=== PATIENT | female | born 1945 | race Caucasian/White ===

== ENCOUNTER 2016-10-31 10:45 | Emergency (ER) | payer MEDICARE, MEDICAID ==
[2016-10-31 11:46] VITALS: BP 111/85
--- NOTE | 2016-10-31 16:15 | ED ---
Complex/Multi-Sys Presentation - HPI Summary HPI Summary: 71 F w/ PMH of HTN, CKD, and CAD presents as she wants to be placed in the care home. She states she has femoral bypass surgery on Sunday at [facility]. She said on Sunday they gave her the option to go home with her sister or to go to the care home. She states at the time she wanted to go home with her sister. She denies any fever, chest pain, or SOB. - History Of Current Complaint Chief Complaint: EDGeneral Time Seen by Provider: 10/31/16 15:54 - Allergies/Home Medications Allergies/Adverse Reactions: Allergies Allergy/AdvReac Type Severity Reaction Status Date / Time No Known Allergies Allergy Verified 08/16/15 15:32 PMH/Surg Hx/FS Hx/Imm Hx Endocrine/Hematology History: Reports: Hx Thyroid Disease - hypothryroid, Other Endocrine/Hematological Disorders - hyperparathyroidism Denies: Hx Diabetes, Hx Systemic Lupus Erythematosus Cardiovascular History: Reports: Hx Angina, Hx Coronary Artery Disease, Hx Hypercholesterolemia, Hx Hypertension, Hx Myocardial Infarction Denies: Hx Congestive Heart Failure, Hx Pacemaker/ICD, Hx Valvular Heart Disease Respiratory History: Reports: Hx Chronic Obstructive Pulmonary Disease (COPD) Denies: Hx Asthma GI History: Reports: Hx Ulcer, Other GI Disorders - ulcers History: Reports: Hx Chronic Renal Failure Denies: Other Problems/Disorders - "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" Musculoskeletal History: Reports: Hx Back Problems, Hx Fibromyalgia, Hx Osteoporosis - L hip, Other Musculoskeletal History - herniated discs x2, carpal tunnel Denies: Hx Rheumatoid Arthritis Sensory History: Reports: Hx Cataracts - R eye, Hx Contacts or Glasses, Hx Hearing Problem - R ear Denies: Hx Hearing Aid Opthamlomology History: Reports: Hx Cataracts - R eye, Hx Contacts or Glasses Neurological History: Reports: Hx Headaches, Other Neuro Impairments/Disorders - intermittent R leg numbness, migraines Psychiatric History: Reports: Hx Anxiety, Hx Depression Denies: Hx Panic Disorder - Surgical History Surgery Procedure, Year, and Place: ILIOFEMERAL BIPASS RT SIDE, GB, hysterectomy Infectious Disease History: No Infectious Disease History: Denies: Traveled Outside the [place] in Last 30 Days - Family History Known Family History: Positive: Cardiac Disease - Social History Alcohol Use: None Substance Use Type: Reports: None Substance Use Comment - Amount & Last Used: OXYCODONE Smoking Status (MU): Heavy Every Day Tobacco Smoker Type: Cigarettes Amount Used/How Often: 10-15/day Length of Time of Smoking/Using Tobacco: 56 years Review of Systems Negative: Fever Negative: Chest Pain Negative: Shortness Of Breath Positive: Other - abdominal pain around incision All Other Systems Reviewed And Are Negative: Yes Physical Exam Triage Information Reviewed: Yes Vital Signs On Initial Exam: Initial Vitals Temp Pulse Resp BP Pulse Ox 97.8 F 64 16 111/85 97 10/31/16 11:41 10/31/16 11:41 10/31/16 11:41 10/31/16 11:41 10/31/16 11:41 Vital Signs Reviewed: Yes Appearance: Positive: Well-Appearing Skin: Positive: Warm, Dry Head/Face: Positive: Normal Head/Face Inspection Eyes: Positive: Normal, Conjunctiva Clear ENT: Positive: Normal ENT inspection, Pharynx normal, TMs normal Respiratory/Lung Sounds: Positive: Clear to Auscultation, Breath Sounds Present Cardiovascular: Positive: Normal, RRR Abdomen Description: Positive: Soft, Other: - incision in LLQ CTI with mild tenderness around it Bowel Sounds: Positive: Present Diagnostics - Vital Signs Vital Signs Temp Pulse Resp BP Pulse Ox 10/31/16 13:24 67 99 10/31/16 11:41 97.8 F 64 16 111/85 97 - Laboratory Result Diagrams: 10/31/16 17:30 10/31/16 17:30 Lab Statement: Any lab studies that have been ordered have been reviewed, and results considered in the medical decision making process. Complex Multi-Symp Course/Dx Course Of Treatment: 71F presents with wanting to be admitted to a care home , normal PE has mild tenderness around CTI incision but pain is well controlled with current medicaiton and no signs of infection, explained that will have to be admitted for process to begin, got some basic labs and were normal, talked to social work and said will have to admit as social admit which would potential cost patient money, explained this to patient and patient states would like to go home to sisters, explained that can follow up with primary and they can start process, states that sister is not feeling great but will be able to take care of her, patient agrees with plan - Diagnoses Differential Diagnoses/HQI/PQRI: Sepsis, Urinary Tract Infection, Other - cellulitis Provider Diagnoses: Encounter for medical screening examination, Encounter for postoperative wound check Discharge - Discharge Plan Condition: Good Disposition: HOME Referrals: Camila Rodriguez MD [Primary Care Provider] - Additional Instructions: Follow up with primary to begin process of placement in care home. Return to ED if develop any new or worsening symptoms
[2016-10-31 17:51] LABS: Hematocrit 30 % (35-47); Mean Corpuscular HGB Conc 33 g/dl (31-36); Mean Corpuscular Hemoglobin 31 pg (27-31); Mean Corpuscular Volume 94 fL (80-97); Mean Platelet Volume 9 um3 (7.4-10.4); Red Cell Distribution Width 17 % (10.5-15); White Blood Count 9.5 10^3/ul (3.5-10.8)
[2016-10-31 18:07] LABS: Albumin 2.9 g/dL (3.2-5.2); BUN/Creatinine Ratio 13.9 (8-20); Calcium 9.5 mg/dL (8.6-10.3); EGFR African American 56.2 (>60); EGFR Non-African American 43.7 (>60); Globulin 2.4 g/dL (2-4); Potassium 4.2 mmol/L (3.5-5.0); Total Bilirubin 0.5 mg/dL (0.2-1.0); Total Protein 5.3 g/dL (6.4-8.9)
== END 2016-10-31 20:08 | disposition home or self-care (01) ==
LOC: ED 10:45
DX: Z02.2 Encounter for examination for admission to residential institution (principal); I12.9 Hypertensive chronic kidney disease with stage 1 through stage 4 chronic kidney disease, or unspecified chronic kidney disease; N18.9 Chronic kidney disease, unspecified; I25.10 Atherosclerotic heart disease of native coronary artery without angina pectoris; E03.9 Hypothyroidism, unspecified; E78.00 Pure hypercholesterolemia, unspecified; I25.2 Old myocardial infarction; I50.9 Heart failure, unspecified; F17.210 Nicotine dependence, cigarettes, uncomplicated; F41.9 Anxiety disorder, unspecified; F32.9 Major depressive disorder, single episode, unspecified
CPT/HCPCS: 36415; 80053; 83605; 84484; 85025; 99282

== ENCOUNTER 2017-05-25 19:00 | Inpatient (IN) | payer MEDICARE, MEDICAID ==
[2017-05-25 20:11] LABS: Hematocrit 40 % (35-47); Hemoglobin 13.4 g/dl (12.0-16.0); Mean Corpuscular HGB Conc 33 g/dl (31-36); Mean Corpuscular Hemoglobin 34 pg (27-31); Mean Corpuscular Volume 104 fL (80-97); Mean Platelet Volume 9 um3 (7.4-10.4); Red Blood Count 3.89 10^6/ul (4.0-5.4); Red Cell Distribution Width 14 % (10.5-15)
[2017-05-25 20:27] LABS: ALT 8 U/L (7-52); AST 14 U/L (13-39); Albumin 3.6 g/dL (3.2-5.2); Alkaline Phosphatase 107 U/L (34-104); Anion Gap 3 mmol/L (2-11); BUN/Creatinine Ratio 13.5 (8-20); Blood Urea Nitrogen 21 mg/dL (6-24); CO2 Carbon Dioxide 24 mmol/L (22-32); Calcium 9.4 mg/dL (8.6-10.3); Chloride 110 mmol/L (101-111); EGFR African American 42.2 (>60); EGFR Non-African American 32.8 (>60); Globulin 2.6 g/dL (2-4); Glucose 96 mg/dL (70-100); Potassium 4.2 mmol/L (3.5-5.0); Sodium 137 mmol/L (133-145); Total Protein 6.2 g/dL (6.4-8.9)
[2017-05-25 20:45] LABS: Acetaminophen < 15 mcg/mL; Alcohol < 10 mg/dL (<10); Salicylate < 2.50 mg/dL (<30)
[2017-05-26] MEDS ORDERED: Acetaminophen TAB* 325 MG PO PRN (00:24)
[2017-05-26] MEDS ORDERED: Al Hydrox/Mg Hydrox/Simet LIQ* 30 ML UDC PO PRN (00:24)
[2017-05-26] MEDS ORDERED: Ibuprofen TAB* 400 MG PO PRN (00:24)
[2017-05-26] MEDS ORDERED: Senna TAB PO PRN (00:25)
[2017-05-26] MEDS ORDERED: Levalbuterol 0.63MG/3ML NEB* UNIT OF USE INH PRN (01:02)
[2017-05-26] MEDS: amLODIPine TAB* 5 MG PO SCH (08:02)
[2017-05-26] MEDS: Atenolol TAB* 25 MG PO SCH (08:06)
[2017-05-26] MEDS: CMC: Pantoprazole TAB (NF) 40 MG TAB PO SCH (08:06)
[2017-05-26] MEDS: Clopidogrel TAB* 75 MG PO SCH (08:06)
[2017-05-26] MEDS: Vitamin THERAPEUTIC TAB PO SCH (08:06)
[2017-05-26] MEDS: Aspirin EC Low Dose* 81 MG TAB.EC PO SCH (08:06)
[2017-05-26] MEDS: Atorvastatin* 10 MG TAB PO SCH (08:06)
[2017-05-26] MEDS: Levothyroxine TAB* 125 MCG TAB PO SCH (08:06)
[2017-05-26] MEDS: Lisinopril TAB* 5 MG PO SCH (08:06)
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
[2017-05-26] MEDS: Amitriptyline TAB* 50 MG PO SCH ×2 (10:23→20:11)
[2017-05-26] MEDS: Nicotine PATCH 21 MG/24 HR* PATCH TRANSDERM PRN (11:14)
[2017-05-26] MEDS ORDERED: ALPRAZolam TAB* 0.5 MG PO PRN (14:30)
[2017-05-26] MEDS: oxyCODONE TAB* 5 MG TAB PO PRN ×2 (16:01→20:11)
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
[2017-05-26] MEDS: Nicotine Patch Removal NOTE PATCH OFF SCH (20:37)
[2017-05-27] MEDS: oxyCODONE TAB* 5 MG TAB PO PRN ×4 (07:42→20:10)
[2017-05-27] MEDS: amLODIPine TAB* 5 MG PO SCH (09:12)
[2017-05-27] MEDS: Lisinopril TAB* 5 MG PO SCH (09:13)
[2017-05-27] MEDS: Clopidogrel TAB* 75 MG PO SCH (09:13)
[2017-05-27] MEDS: Atenolol TAB* 25 MG PO SCH (09:19)
[2017-05-27] MEDS: Atorvastatin* 10 MG TAB PO SCH (09:19)
[2017-05-27] MEDS: Levothyroxine TAB* 125 MCG TAB PO SCH (09:19)
[2017-05-27] MEDS: Aspirin EC Low Dose* 81 MG TAB.EC PO SCH (09:20)
[2017-05-27] MEDS: Vitamin THERAPEUTIC TAB PO SCH (09:20)
[2017-05-27] MEDS: CMC: Pantoprazole TAB (NF) 40 MG TAB PO SCH (09:21)
[2017-05-27] MEDS: Nicotine PATCH 21 MG/24 HR* PATCH TRANSDERM PRN (11:33)
[2017-05-27] MEDS: Amitriptyline TAB* 50 MG PO SCH (20:11)
--- NOTE | 2017-05-27 21:10 | PN ---
Subjective - Subjective Service Type: 34832 Hosp care 15 min low complexity Subjective: Patient anxious in affect on interview. She reports no issues on the unit. Patient reports sleep and appetite have been fair. She denies SI/HI and AH/VH. Patient informed her attending psychiatrist will see her in the morning regarding mx/meds/discharge. Objective - Appearance Appearance: Thin Framed Dysmorphic Features: No Hygiene: Normal Grooming: Fairly Well Kept - Behavior Psychomotor Activities: Normal Exhibits Abnormal Movement: No - Attitude and Relatedness Attitude and Relatedness: Cooperative Eye Contact: Fair - Speech Quality: Unpressured Latencies: Normal Quantity: Appropriate - Mood Patient's Decription of Mood: "Anxious" - Affect Observed Affect: Tense Affect Consistent with: Dysphoria - Thought Process Patient's Thought Process: Coherent Thought Content: No Passive Wish, No Suicidal Planning, No Homicidal Ideation, No Paranoid Ideation - Sensorium Experiencing Hallucinations: No, Sensorium is Clear Type of Hallucinations: Visual: No, Auditory: No, Command: No - Level of Consciousness Level of Consciousness: Alert Orientation: Yes Intact, Yes Orientated to Time, Yes Orientated to Place, Yes Orientated to Person - Impulse Control Impulse Control: Intact - Insight and Judgement Insight and Judgement: Fair - Group Participation Particating in Group Activities: Yes - Medication Management Medication Management Adherence: Yes Assessment - Assessment Merits Inpatient Hospitalization: For Immediate Safety, For Stabilization Inpatient DSM-IV Dx: 1. MDD, R,S w/o PFs. 2. Unspecified Anxiety d/o Plan - Plan Treatment Plan: Name: CONCETTA POLANCO Birthdate: 1945 [id number] 1. Continue current med regimen as ordered. 2. Patient informed her attending psychiatrist will see her in the am. Medications: Current Medications Acetaminophen (Tylenol Tab*) 650 mg PO Q4H PRN PRN Reason: PAIN or TEMP > 101 F Al Hydrox/Mg Hydrox/Simethicone (Maalox Plus*) 30 ml PO Q4H PRN PRN Reason: INDIGESTION Alprazolam (Xanax Tab*) 0.5 mg PO BID PRN PRN Reason: ANXIETY Amitriptyline HCl (Elavil Tab*) 50 mg PO BEDTIME [facility] Last Admin: 05/27/17 20:11 Dose: 50 mg Amlodipine Besylate (Norvasc Tab*) 2.5 mg PO DAILY [facility] Last Admin: 05/27/17 09:12 Dose: 2.5 mg Aspirin (Aspirin Ec Low Dose*) 81 mg PO DAILY [facility] Last Admin: 05/27/17 09:20 Dose: 81 mg Atenolol (Tenormin Tab*) 25 mg PO DAILY [facility] Last Admin: 05/27/17 09:19 Dose: 25 mg Atorvastatin Calcium (Lipitor*) 10 mg PO DAILY [facility] Last Admin: 05/27/17 09:19 Dose: 10 mg Clopidogrel Bisulfate (Plavix Tab*) 75 mg PO DAILY [facility] Last Admin: 05/27/17 09:13 Dose: 75 mg Ibuprofen (Motrin Tab*) 400 mg PO Q6H PRN PRN Reason: PAIN Last Admin: 05/26/17 11:12 Dose: 400 mg Levalbuterol HCl (Xopenex 0.63mg/3ml Neb*) 0.63 mg INH TID PRN PRN Reason: SHORTNESS OF BREATH Levothyroxine Sodium (Synthroid Tab*) 125 mcg PO DAILY@0600 [facility] Last Admin: 05/27/17 09:19 Dose: 125 mcg Lisinopril (Prinivil Tab*) 5 mg PO DAILY [facility] Last Admin: 05/27/17 09:13 Dose: 5 mg Multivitamins (Theragran Tab*) 1 tab PO DAILY [facility] Last Admin: 05/27/17 09:20 Dose: 1 tab Nicotine (Nicotine Patch 21 Mg/24 Hr*) 1 patch TRANSDERM DAILY PRN PRN Reason: CRAVINGS Last Admin: 05/27/17 11:33 Dose: 1 patch Nicotine (Nicotine Inhaler*) 10 mg INH Q2H PRN PRN Reason: NICOTINE CRAVINGS Oxycodone HCl (Roxycodone Tab*) 5 mg PO Q4HR PRN PRN Reason: PAIN Last Admin: 05/27/17 20:10 Dose: 5 mg Pantoprazole Sodium (Protonix Tab (Nf)) 40 mg PO DAILY [facility] Last Admin: 05/27/17 09:21 Dose: 40 mg Pharmacy Profile Note (Nicotine Patch Removal Note*) 1 note PATCH OFF 2100 [facility] Last Admin: 05/26/17 20:37 Dose: 1 note Senna (Senokot Tab*) 1 tab PO BID PRN PRN Reason: CONSTIPATION - Discharge Plan Discharge Plan: Outpatient Follow Up
[2017-05-28] MEDS: oxyCODONE TAB* 5 MG TAB PO PRN ×5 (00:21→20:14)
[2017-05-28] MEDS: Levothyroxine TAB* 125 MCG TAB PO SCH (07:32)
[2017-05-28] MEDS ORDERED: Mouth Piece, Nicotine* 1 EACH CARTRIDGE ONE (07:32)
[2017-05-28] MEDS: Nicotine Inhaler* 10 MG AMP INH PRN ×2 (07:33→15:56)
[2017-05-28 08:00] VITALS: BP 152/74
[2017-05-28] MEDS: Nicotine Patch Removal NOTE PATCH OFF SCH ×2 (08:56→20:14)
[2017-05-28] MEDS: Nicotine PATCH 21 MG/24 HR* PATCH TRANSDERM PRN (08:59)
[2017-05-28] MEDS: Aspirin EC Low Dose* 81 MG TAB.EC PO SCH (09:03)
[2017-05-28] MEDS: Vitamin THERAPEUTIC TAB PO SCH (09:03)
[2017-05-28] MEDS: Lisinopril TAB* 5 MG PO SCH (09:03)
[2017-05-28] MEDS: Atenolol TAB* 25 MG PO SCH (09:03)
[2017-05-28] MEDS: Atorvastatin* 10 MG TAB PO SCH (09:03)
[2017-05-28] MEDS: amLODIPine TAB* 5 MG PO SCH (09:03)
[2017-05-28] MEDS: Clopidogrel TAB* 75 MG PO SCH (09:03)
[2017-05-28] MEDS: CMC: Pantoprazole TAB (NF) 40 MG TAB PO SCH (10:05)
[2017-05-28] MEDS ORDERED: Venlafaxine EXT RELEASE CAP* 75 MG PO SCH ×2 (12:00→15:09)
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
[2017-05-28] MEDS ORDERED: Mirtazapine TAB* 15 MG PO SCH (21:00)
[2017-05-28] MEDS ORDERED: Amitriptyline TAB* 25 MG PO SCH (21:00)
[2017-05-29] MEDS: amLODIPine TAB* 5 MG PO SCH (08:29)
[2017-05-29] MEDS: Levothyroxine TAB* 125 MCG TAB PO SCH (08:29)
[2017-05-29] MEDS: Aspirin EC Low Dose* 81 MG TAB.EC PO SCH (08:30)
[2017-05-29] MEDS: Atorvastatin* 10 MG TAB PO SCH (08:30)
[2017-05-29] MEDS: Atenolol TAB* 25 MG PO SCH (08:30)
[2017-05-29] MEDS: Clopidogrel TAB* 75 MG PO SCH (08:30)
[2017-05-29] MEDS: Lisinopril TAB* 5 MG PO SCH (08:30)
[2017-05-29] MEDS: Vitamin THERAPEUTIC TAB PO SCH (08:31)
[2017-05-29] MEDS: CMC: Pantoprazole TAB (NF) 40 MG TAB PO SCH (08:31)
[2017-05-29] MEDS: oxyCODONE TAB* 5 MG TAB PO PRN ×2 (08:32→12:34)
[2017-05-29] MEDS: Nicotine Inhaler* 10 MG AMP INH PRN (08:48)
[2017-05-29] MEDS: Nicotine PATCH 21 MG/24 HR* PATCH TRANSDERM PRN (08:49)
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
== END 2017-05-29 14:00 | disposition home health service (06) | DRG 885 ==
LOC: ED 19:00 → BSU 05-26 00:29
PROVIDERS: ADMIT Psychiatry & Neurology Psychiatry; ATTEND Psychiatry & Neurology Psychiatry
DX: F33.1 Major depressive disorder, recurrent, moderate (principal); J44.9 Chronic obstructive pulmonary disease, unspecified; G62.9 Polyneuropathy, unspecified; M41.9 Scoliosis, unspecified; Z91.14 Patient's other noncompliance with medication regimen; Z68.1 Body mass index [BMI] 19.9 or less, adult; I12.9 Hypertensive chronic kidney disease with stage 1 through stage 4 chronic kidney disease, or unspecified chronic kidney disease; E03.9 Hypothyroidism, unspecified; E78.00 Pure hypercholesterolemia, unspecified; N18.9 Chronic kidney disease, unspecified; I25.10 Atherosclerotic heart disease of native coronary artery without angina pectoris; F41.9 Anxiety disorder, unspecified; F11.90 Opioid use, unspecified, uncomplicated; R40.2412 Glasgow coma scale score 13-15, at arrival to emergency department; F10.21 Alcohol dependence, in remission; K86.9 Disease of pancreas, unspecified; R63.4 Abnormal weight loss; M79.7 Fibromyalgia; M19.90 Unspecified osteoarthritis, unspecified site; F17.210 Nicotine dependence, cigarettes, uncomplicated; M81.0 Age-related osteoporosis without current pathological fracture; G43.909 Migraine, unspecified, not intractable, without status migrainosus; H91.92 Unspecified hearing loss, left ear; R19.7 Diarrhea, unspecified; H26.9 Unspecified cataract; Z82.49 Family history of ischemic heart disease and other diseases of the circulatory system; Z90.49 Acquired absence of other specified parts of digestive tract; I25.2 Old myocardial infarction; Z90.710 Acquired absence of both cervix and uterus; Z91.5 Personal history of self-harm; Z81.1 Family history of alcohol abuse and dependence; Z81.8 Family history of other mental and behavioral disorders
CPT/HCPCS: 36415; 80053; 80320; 80329; 84443; 85025; 99222; 99231; 99232; 99238; A9270-GY; G0480; J7615

== ENCOUNTER → 2017-09-18 08:36 | Emergency (ER) | payer MEDICARE, MEDICAID ==
[~2017-09-18 08:36] MED LIST: Acetaminophen TAB* 325 MG PO ONE; Morphine INJ* 4 MG/ML 1 ML CARPUJECT IV ONE; Ondansetron INJ* 2 MG/ML VIAL IV ONE; hydrALAZINE IV* 20 MG/ML VIAL IV SLOW PU ONE; oxyCODONE TAB* 5 MG TAB PO ONE
--- NOTE | 2017-09-18 09:18 | ED ---
Complex/Multi-Sys Presentation - HPI Summary HPI Summary: Pt here w/ fall yesterday around 15:00. Was ambulating with her cane to go to the [facility] when she believes her cane got caught in a sidewalk crack and she fell, landing on Rt UE and Lt side of face. Rt wrist is bruised, swollen and painful to move. Rt elbow and shoulder are also painful to touch and sore with movement. Denies numbness, tingling, weakness but has pain in wrist w/ moving her fingers here. Pain radiates from wrist up to shoulder. Tried ice and took an oxycodone 5mg which she has for her chronic lumbar pain. She denies LOC but admits she was alone and no one saw her fall. Admits she was down for a few minutes before she could get up. Struck her Lt side of her face which is bruised and painful. Has some photophobia since injury and neck pain. Denies franca MA, visual change, vomiting, balance issues, syncope, chest pain, SOB, ab pain, LE pain. Does admit her appetite has been poor since accident and has not eaten anything since fall. She has osteoporosis, HTN and PAD w/ bypass surgery in [place]. Had an ND in her late 30's. Takes lisinopril, atenolol and plavix as well as Vit D for osteoporosis as she reports her "kidneys do not work well". Also reports she has stents in her aorta and iliac vessels for reasons she does not know. - History Of Current Complaint Chief Complaint: EDExtremityUpper Time Seen by Provider: 09/18/17 08:58 Hx Obtained From: Patient - Allergies/Home Medications Allergies/Adverse Reactions: Allergies Allergy/AdvReac Type Severity Reaction Status Date / Time No Known Allergies Allergy Verified 09/18/17 08:39 PMH/Surg Hx/FS Hx/Imm Hx Previously Healthy: Yes Endocrine/Hematology History: Reports: Hx Anticoagulant Therapy - plavix, Hx Thyroid Disease - hypothryroid, Other Endocrine/Hematological Disorders - pancreatitis Denies: Hx Diabetes, Hx Systemic Lupus Erythematosus Cardiovascular History: Reports: Hx Angina, Hx Coronary Artery Disease, Hx Hypercholesterolemia, Hx Hypertension, Hx Myocardial Infarction - at age 41 y.o. 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 Denies: Other Problems/Disorders - "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" Musculoskeletal History: Reports: Hx Arthritis, Hx Back Problems, Hx Fibromyalgia, Hx Osteoporosis, Hx Scoliosis, Other Musculoskeletal History - herniated discs x2, carpal tunnel Denies: Hx Rheumatoid Arthritis Sensory History: Reports: Hx Cataracts - R eye, Hx Hearing Problem - Pt states she cannot hear with her left ear Denies: Hx Contacts or Glasses, Hx Hearing Aid Opthamlomology History: Reports: Hx Cataracts - R eye Denies: Hx Contacts or Glasses Neurological History: Reports: Hx Headaches, Other Neuro Impairments/Disorders - intermittent R leg numbness, migraines Psychiatric History: Reports: Hx Anxiety, Hx Depression, Hx of Violent Episodes Against Others Denies: Hx Eating Disorder, Hx Panic Disorder - Surgical History Surgery Procedure, Year, and Place: ILIOFEMORAL BYPASS RT SIDE,. CHOLECYSTECTOMY,. hysterectomy,. AORTIC STENTS,. BI-LAT FEMORAL GRAFTS,. CARPAL TUNNEL RT WRIST. CYST REMOVED FROM BACK. ECTOPIC . TONSILECTOMY Infectious Disease History: No Infectious Disease History: Denies: Traveled Outside the [place] in Last 30 Days - Family History Known Family History: Positive: Cardiac Disease - Social History Occupation: Disabled Lives: Alone - [employer] Alcohol Use: None Hx Substance Use: No Substance Use Type: Reports: None Substance Use Comment - Amount & Last Used: OXYCODONE Hx Tobacco Use: Yes Smoking Status (MU): Current Every Day Smoker Type: Cigarettes Amount Used/How Often: 10-15/day Length of Time of Smoking/Using Tobacco: 56 years Have You Smoked in the Last Year: Yes Review of Systems Positive: Fatigue - tired from not sleeping well last night d/t pain in wrist Positive: Photophobia. Negative: Blurred Vision, Diplopia, Drainage, Erythema Negative: Epistaxis, Dental Pain, Sore Throat, Ear Ache, Nasal Discharge Negative: Chest Pain Negative: Shortness Of Breath Positive: Other - decreased appetite. Negative: Abdominal Pain, Vomiting, Diarrhea, Nausea Positive: no symptoms reported Positive: Arthralgia, Myalgia, Decreased ROM, Edema Positive: Bruising Negative: Headache - but has facial pain, Weakness, Paresthesia, Numbness, Syncope, Slurred Speech Psychological: Normal All Other Systems Reviewed And Are Negative: Yes Physical Exam Triage Information Reviewed: Yes Vital Signs On Initial Exam: Initial Vitals Temp Pulse Resp BP Pulse Ox 98.6 F 63 16 177/99 96 09/18/17 08:39 09/18/17 08:39 09/18/17 08:39 09/18/17 08:39 09/18/17 08:39 Vital Signs Reviewed: Yes Appearance: Positive: Pain Distress - mild at rest, gaurding Rt wrist movements , Thin - appears tired and speech is deliberate with subtle tremor (pt's chart indicate she takes/took lithium); Skin: Positive: Warm, Dry - Rt wrist is feverish to touch and edematous w/ bruising - no skin breakdown observed here; Lt periorbital region w/ edema, fresh ecchymosis and scabbed abrasion - TTP Head/Face: Positive: Other - as above; no step off, no battlesign Eyes: Positive: EOMI, IRMA - mild photophobia, Conjunctiva Clear. Negative: Conjunctiva Inflammed, Discharge ENT: Positive: Hearing grossly normal, Pharynx normal - oral mucosa dry, TMs normal - no hemotympanum. Negative: Nasal congestion, Nasal drainage Neck: Positive: Supple, Tenderness @ - paracervical and spinous pp TTP Respiratory/Lung Sounds: Positive: Clear to Auscultation, Breath Sounds Present Cardiovascular: Positive: Normal, RRR, Other - +1-2 pulse palated in Lt radial wrist - difficult to asses Rt radial pulse - cap refill < 2 secs distally and phalanges are warm w/ pink color equal to Lt hand. Negative: Leg Edema Left, Leg Edema Right - NTTP B/L Abdomen Description: Positive: Nontender, No Organomegaly, Soft Bowel Sounds: Positive: Present Musculoskeletal: Positive: Strength/ROM Intact - shoulders, elbows B/L, Limited @ - Rt phalanges and wrist w/ limited ROM d/t pain, swelling, Pain @ - Rt shoulder w/ TTP and Rt elbow w/ TTP - humerus and forearm NTTP; Rt wrist is TTP ; phalanges/hand are NTTP Neurological: Positive: Sensory/Motor Intact, Alert, Oriented to Person Place, Time, CN Intact II-III, Facial Symmetry, Speech Normal - not slurred but subtly deliberate Psychiatric: Positive: Normal - pleasant, calm, cooperative Diagnostics - Vital Signs Vital Signs Temp Pulse Resp BP Pulse Ox 09/18/17 08:39 98.6 F 63 16 177/99 96 - Laboratory Result Diagrams: 09/18/17 14:15 Diagnostic Studies Comment: Rt wrist bone avulsion of the .... - otherwise, no acute pathology per radioogy report or per my personal review of XR. Lab Statement: Any lab studies that have been ordered have been reviewed, and results considered in the medical decision making process. Re-Evaluation - Re-Evaluation First Eval Change: Improved - pt reports taking oxycodone at 5am this morning which was helping her wrist pain. At 10am she reported pain was coming back and requesting pain control. Another oxycodone 5 mg was administered PO and she reports good pain control with this. Complex Multi-Symp Course/Dx Course Of Treatment: Pt here w/ mulitple sx s/p fall yesterday. She tripped and fell, landing on sidewalk and catching herself with Lt side of face and Rt wrist. She has pain and swelling in wrist nad about face. She also reported photophobia, facial pain and neck pain. CT's were w/o acute findings and all XR w/o acute findings except Rt wrist w/ avulsion fx of ... She was splinted w/ normal N/V exam before and after. However, upon d/c vitals indicated asx hypertensive urgency. Pt reports " this happens at times - I just take a norvasc and it gets better". She was given 10mg hydralazine IV and had some reduction of systolic pressure in the first hour however she did report some dizziness. ECG w/o signs of end organ damage. Upon evaluation 2 hours after hydralazine, pt's pain is poorly controlled - 10/10 - and still asx but has elevated BP. She reports she's not been taking norvasc as she only takes it when he BP is high and it hasn't been since last seen by PCP 1-2 weeks ago. She admits she takes xanax for anxiety (0.25mg). Will try different pain control method to see if this reduces pain, BP and anxiety. S/p morphine IV and PO acetaminophen (plus low salt snacks), pt's BP stayed below 200 systolic and her pain improved - she is resting comfortably and ready to go home. Explained she needs to call her PCP today to schedule appt re: better BP control. Reviewed danger s/sx of when to return to ED. Notified pt's sister who also agrees to aid in compliance. - Diagnoses Provider Diagnoses: Closed fracture of right wrist, Hypertensive urgency Discharge - Discharge Plan Condition: Stable Disposition: HOME Patient Education Materials: Wrist Fracture in Adults (ED), Splint Care (ED), Hypertension (ED), Fall Prevention for Older Adults (ED) Referrals: Dallas Sanchez MD [Medical Doctor] - Camila Rodriguez MD [Primary Care Provider] - Additional Instructions: Rest, ice, elevate Keep splint in place until seen by orthopedic - call today to schedule an appointment You may continue to take your oxycodone which you have at home for pain *If you develop numbness, tingling, weakness, coolness of fingers, return to ED You also have a dangeroulsy elevated blood pressure which needs better management. This may be addressed by your PCP. Continue to take your current blood pressure medications as directed and call your PCP today to schedule appointment in next 1-2 days.
--- NOTE | 2017-09-18 09:50 | RAD ---
HISTORY: Fall, facial injury, photosensitivity COMPARISONS: August 19, 2016 TECHNIQUE: Multiple contiguous axial CT scans were obtained of the head without intravenous contrast. FINDINGS: HEMORRHAGE/INFARCT: There is no hemorrhage or acute infarct. MASSES/SHIFT: There is no mass or shift. EXTRA-AXIAL SPACES: There are no extra-axial fluid collections. SULCI AND VENTRICLES: The sulci and ventricles are normal in size and position for the patient's stated age. CEREBRUM: There are no focal parenchymal abnormalities. BRAINSTEM: There are no focal parenchymal abnormalities. CEREBELLUM: There are no focal parenchymal abnormalities. VESSELS: The vessels are grossly normal. PARANASAL SINUSES: The paranasal sinuses are clear. ORBITS: The orbits are unremarkable. BONES AND SOFT TISSUE: No bone or soft tissue abnormalities are noted. OTHER: None IMPRESSION: NO ACUTE INTRACRANIAL PATHOLOGY.
--- NOTE | 2017-09-18 09:53 | RAD ---
HISTORY: Fall, neck pain, osteoporosis COMPARISONS: None relevant TECHNIQUE: Multiple contiguous axial CT scans were obtained of the cervical spine without intravenous contrast, with coronal and sagittal multiplanar reformations. FINDINGS: BRAIN: The visualized brain is unremarkable CENTRAL CANAL: Evaluation of the central canal is limited on CT technique; however, there is no obvious canalicular mass or epidural hemorrhage. ALIGNMENT: There is straightening of the cervical lordosis. VERTEBRAL BODIES: There is multilevel bridging anterolateral marginal osteophyte formation. There is diffuse osteopenia. There is a persistent subdental synchondrosis. There is no displaced fracture. JOINTS: There is uncovertebral and facet osteoarthritis. MUSCULATURE: Unremarkable INTERVERTEBRAL DISCS: There is diffuse loss of intervertebral disc height. AXIAL IMAGES: C2-C3: There is no osseous neural foraminal narrowing or central canal stenosis. C3-C4: There are posterior bridging osteophytes. There is bilateral uncovertebral and facet hypertrophy. There is moderate bilateral neural foraminal narrowing. There is mild narrowing of the central canal. C4-C5: There is posterior osteophytic ridging. There is bilateral vertebral and facet hypertrophy. There is severe bilateral neural foraminal narrowing. There is no significant osseous central canal stenosis. C5-C6: There is bilateral uncovertebral hypertrophy. There is moderate left neural foraminal narrowing. There is no osseous central canal stenosis. C6-C7: There is no osseous neural foraminal narrowing or central canal stenosis. C7-T1: There is no osseous neural foraminal narrowing or central canal stenosis. SOFT TISSUES: The visualized soft tissues of the neck are unremarkable. The prevertebral fat stripe is preserved. OTHER: None. IMPRESSION: DEGENERATIVE DISC DISEASE AND OSTEOARTHRITIS DESCRIBED ABOVE. NO ACUTE OSSEOUS INJURY TO THE CERVICAL SPINE
--- NOTE | 2017-09-18 09:55 | RAD ---
HISTORY: Fall with facial injury and bruising COMPARISONS: None relevant TECHNIQUE: Multiple contiguous axial CT scans were obtained of the face without intravenous contrast, with coronal and sagittal multiplanar reformations. FINDINGS: BONES: There is no displaced fracture or dislocation. The orbital rim is intact. The zygomatic arch is intact. The pterygoid plates are intact. ORBITS: The globes are round. The optic nerves are symmetric. The extraocular musculature is normal. There is no post septal or intraconal inflammatory change. There is no retrobulbar hematoma. PARANASAL SINUSES: The paranasal sinuses are clear. The nasal septum is deviated to the right BRAIN AND SOFT TISSUE: A surgical clip is noted in the right infratemporal fossa. OTHER: None. IMPRESSION: NO FACIAL FRACTURE
--- NOTE | 2017-09-18 11:03 | RAD ---
HISTORY: Fall with right wrist swelling and pain and limited range of motion COMPARISONS: None VIEWS: 2, Frontal and lateral views of the right wrist FINDINGS: BONE DENSITY: There is diffuse osteopenia. BONES: There is a bone fragment along the dorsal aspect of the proximal carpal row, likely representing a triquetral avulsion fracture. JOINTS: There is osteoarthritis of the first CMC and MCP joints. ALIGNMENT: There is no dislocation. SOFT TISSUES: Unremarkable. OTHER FINDINGS: None. IMPRESSION: 1. SMALL BONE FRAGMENT ALONG THE DORSAL ASPECT OF THE PROXIMAL CARPAL ROW, LIKELY REPRESENTING AN AVULSION FRACTURE OF THE TRIQUETRUM. 2. OSTEOPENIA. 3. OSTEOARTHRITIS.
--- NOTE | 2017-09-18 11:03 | RAD ---
HISTORY: Fall, elbow pain, osteoporosis COMPARISONS: None VIEWS: 2, Frontal and lateral views of the right elbow FINDINGS: BONE DENSITY: There is diffuse osteopenia. BONES: There is no displaced fracture. JOINTS: There is no arthropathy. There is no posterior supracondylar fat pad to suggest a joint effusion. ALIGNMENT: There is no dislocation. SOFT TISSUES: Unremarkable. OTHER FINDINGS: None. IMPRESSION: NO ACUTE OSSEOUS INJURY. IF SYMPTOMS PERSIST, RECOMMEND REPEAT IMAGING.
--- NOTE | 2017-09-18 11:43 | RAD ---
INDICATION: Right shoulder pain COMPARISON: None TECHNIQUE: Routine frontal, Y and axial views were obtained. FINDINGS: The bony structures, joint spaces, and soft tissues are normal for age. IMPRESSION: NEGATIVE EXAMINATION
[2017-09-18 14:38] LABS: BUN/Creatinine Ratio 10.8 (8-20); Blood Urea Nitrogen 16 mg/dL (6-24); CO2 Carbon Dioxide 21 mmol/L (22-32); Calcium 10.5 mg/dL (8.6-10.3); Chloride 104 mmol/L (101-111); EGFR African American 44.8 (>60); EGFR Non-African American 34.9 (>60); Glucose 111 mg/dL (70-100); Sodium 134 mmol/L (133-145)
[2017-09-18 14:53] LABS: Anion Gap 9 mmol/L (2-11)
[2017-09-18 16:12] VITALS: BP 204/113
== END | disposition home or self-care (01) ==
LOC: ED 08:36
DX: S62.101A Fracture of unspecified carpal bone, right wrist, initial encounter for closed fracture (principal); I25.2 Old myocardial infarction; M54.5 Low back pain; G89.29 Other chronic pain; F17.210 Nicotine dependence, cigarettes, uncomplicated; I16.0 Hypertensive urgency; W18.09XA Striking against other object with subsequent fall, initial encounter; Y93.9 Activity, unspecified; Y92.480 Sidewalk as the place of occurrence of the external cause; F41.9 Anxiety disorder, unspecified; Z79.02 Long term (current) use of antithrombotics/antiplatelets; E03.9 Hypothyroidism, unspecified
CPT/HCPCS: 29125; 36415; 70450; 70486; 72125; 80048; 93005; 99285; A9270-GY; J0360; J2270; J2405

== ENCOUNTER 2019-01-14 15:44 | Emergency (ER) | payer MEDICARE, MEDICAID ==
[2019-01-14 15:57] VITALS: BP 144/80
--- NOTE | 2019-01-14 16:08 | ED ---
Lower Extremity - HPI Summary HPI Summary: This pt is a 74 y/o female presenting to [facility] c/o right leg numbness and pain for the past 6 days, worsening now. Pt reports she fell 1 week ago and since then has had right leg pain. She states right leg pain has been increasing. Denies fever or chills. Pt has hx of bilateral femoral artery bypass in [address] Ray Ratliff (vascular surgeon) at [facility] (address : [address] [place] [address]). Pt states she has not taken Plavix in 2 weeks because she couldn't afford them. - History of Current Complaint Chief Complaint: EDExtremityLower Stated Complaint: FALL WEEK AGO, RIGHT LEG PAIN, NO FEELING PER PT Hx Obtained From: Patient Mechanism Of Injury: Fall From A Standing Position Pain Intensity: 9 Pain Scale Used: 0-10 Numeric Timing: Lasting Days Location: Is Discrete @ - right foot Associated Signs And Symptoms: Positive: Other - POS: numbness and pain in right leg. Negative: Fever, Abdominal Pain, Knee Pain Aggravating Factor(s): Nothing Alleviating Factor(s): Nothing Related History: Other - bilateral femoral artery bypass in 2015 - Allergies/Home Medications Allergies/Adverse Reactions: Allergies Allergy/AdvReac Type Severity Reaction Status Date / Time No Known Allergies Allergy Verified 09/18/17 08:39 PMH/Surg Hx/FS Hx/Imm Hx Endocrine/Hematology History: Reports: Hx Anticoagulant Therapy - plavix, Hx Thyroid Disease - hypothryroid, Other Endocrine/Hematological Disorders - pancreatitis Denies: Hx Diabetes, Hx Systemic Lupus Erythematosus Cardiovascular History: Reports: Hx Angina, Hx Coronary Artery Disease, Hx Hypercholesterolemia, Hx Hypertension, Hx Myocardial Infarction - at age 41 y.o. 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 Denies: Other Problems/Disorders - "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" Musculoskeletal History: Reports: Hx Arthritis, Hx Back Problems, Hx Fibromyalgia, Hx Osteoporosis, Hx Scoliosis, Other Musculoskeletal History - herniated discs x2, carpal tunnel Denies: Hx Rheumatoid Arthritis Sensory History: Reports: Hx Cataracts - R eye, Hx Hearing Problem - Pt states she cannot hear with her left ear Denies: Hx Contacts or Glasses, Hx Hearing Aid Opthamlomology History: Reports: Hx Cataracts - R eye Denies: Hx Contacts or Glasses Neurological History: Reports: Hx Headaches, Other Neuro Impairments/Disorders - intermittent R leg numbness, migraines Psychiatric History: Reports: Hx Anxiety, Hx Depression, Hx of Violent Episodes Against Others Denies: Hx Eating Disorder, Hx Panic Disorder - Surgical History Surgery Procedure, Year, and Place: ILIOFEMORAL BYPASS RT SIDE,. CHOLECYSTECTOMY,. hysterectomy,. AORTIC STENTS,. BI-LAT FEMORAL GRAFTS,. CARPAL TUNNEL RT WRIST. CYST REMOVED FROM BACK. ECTOPIC . TONSILECTOMY Infectious Disease History: No Infectious Disease History: Denies: Traveled Outside the [place] in Last 30 Days - Family History Known Family History: Positive: Cardiac Disease - Social History Alcohol Use: None Hx Substance Use: No Substance Use Type: Reports: None Substance Use Comment - Amount & Last Used: OXYCODONE Hx Tobacco Use: Yes Smoking Status (MU): Current Every Day Smoker Type: Cigarettes Amount Used/How Often: 10-15/day Length of Time of Smoking/Using Tobacco: 56 years Have You Smoked in the Last Year: Yes Review of Systems Negative: Fever, Chills Positive: Cough Musculoskeletal: Other - POS: right leg pain Positive: Numbness - right leg All Other Systems Reviewed And Are Negative: Yes Physical Exam - Summary Physical Exam Summary: VITAL SIGNS: Reviewed. GENERAL: Patient is a well-developed and nourished female who is lying comfortable in the stretcher. Patient is not in any acute respiratory distress. HEAD AND FACE: Normocephalic EYES: PERRLA, EOMI x 2. EARS: Hearing grossly intact. MOUTH: Oropharynx within normal limits. NECK: Supple, trachea is midline, no adenopathy, no JVD, no carotid bruit. CHEST: Symmetric, no tenderness at palpation LUNGS: Clear to auscultation bilaterally. No wheezing or crackles. CVS: Regular rate and rhythm, S1 and S2 present, no murmurs or gallops appreciated. ABDOMEN: Soft, non-tender. Bowel sounds are normal. No abdominal abnormal pulsations. EXTREMITIES: RLE: decreased sensation. Blue-bo discoloration in toes. Pulseless pain. Pallor. Motor strength is 4/5 in the right foot. No pedal pulse. No dorsalis pedis pulse. Faint posterior tibial artery pulse. Paresthesia on right foot. Poikilothermia on right foot. Good femoral pulses in both legs. NEURO: Alert and oriented x 3. No acute neurological deficits. Speech is normal and follows commands. SKIN: Dry and warm Triage Information Reviewed: Yes Vital Signs On Initial Exam: Initial Vitals Temp Pulse Resp BP Pulse Ox 98.7 F 80 20 144/80 97 01/14/19 15:53 01/14/19 15:53 01/14/19 15:53 01/14/19 15:53 01/14/19 15:53 Vital Signs Reviewed: Yes Diagnostics - Vital Signs Vital Signs Temp Pulse Resp BP Pulse Ox 01/14/19 15:53 98.7 F 80 20 144/80 97 - Laboratory Result Diagrams: 01/14/19 16:14 01/14/19 16:14 Lab Statement: Any lab studies that have been ordered have been reviewed, and results considered in the medical decision making process. Lower Extremity Course/Dx - Course Assessment/Plan: This patient is a 74-year-old female who presents to the emergency department with chief complaint of having right lower extremity pain and numbness. The patient has past medical history significant for hypertension , hypothyroidism, peripheral vascular disease status post bilateral lower extremity stents in 2014. Patient is supposed to take Plavix however, for the last week the patient has not taken her medications since the patient is unable to afford this medication. Today she comes into the emergency department complaining that the pain, numbness, and cold symptoms of the right foot is getting worse. In the physical exam the patient has good femoral pulses in both lower extremities, unable to elicit the dorsalis pedis pulse, but she has a faint posterior tibial pulse. Therefore I contacted Dr. Pineda, vascular surgeon, who accepted the patient for transfer. I also discussed the case with Dr. Pollard, from the emergency department at [facility], who accepted the patient for transfer to the emergency department at [facility].. Dr. Pinead recommended no anticoagulation at this time. Patient is hemodynamically stable , alert and oriented 3. - Diagnoses Provider Diagnoses: Acute occlusion of artery - Physician Notifications Discussed Care Of Patient With: Miss Wesley Time Discussed With Above Provider: 16:38 Instructed by Provider To: Other - Spoke with Miss Wesley from the transfer center at [facility] who reports she will get in touch with Dr. Pineda, vascular surgeon, and will call back. [16:55] Discussed the case with Dr. Pineda who accepted the pt for transfer. [16:57] Also discussed the case with Dr. Pollard, ED provider at [facility], who accepted the pt for transfer to the ED. - Critical Care Time Critical Care Time: 30-74 min Discharge - Sign-Out/Discharge Documenting (check all that apply): Patient Departure - Transfer to [facility] Patient Received Moderate/Deep Sedation with Procedure: No - Discharge Plan Condition: Stable Disposition: TRANS HIGHER LVL OF CARE FAC Referrals: Camila Rodriguez MD [Primary Care Provider] - - Billing Disposition and Condition Condition: STABLE Disposition: Trans Higher Lvl of Care Fac - Attestation Statements Document Initiated by Scribe: Yes Documenting Scribe: Rosita Yu Provider For Whom Scribe is Documenting (Include Credential): Bigg Solorio MD Scribe Attestation: Rosita Villar, scribed for Bigg Solorio MD on 01/14/19 at 1711. Scribe Documentation Reviewed: Yes Provider Attestation: The documentation as recorded by the Rosita brandon accurately reflects the service I personally performed and the decisions made by , Bigg Solorio MD Status of Scribe Document: Viewed
[2019-01-14 16:34] LABS: ABS Basophils 0.1 10^3/ul (0-0.2); ABS Eosinophils 0.1 10^3/ul (0-0.6); ABS Lymphocytes 2.3 10^3/ul (1.0-4.8); ABS Monocytes 0.7 10^3/ul (0-0.8); ABS Neutrophils 7.2 10^3/ul (1.5-7.7); ABS Nucleated RBC 0 10^3/ul; Eosinophil % 1.2 %; Hematocrit 39 % (33-41); Hemoglobin 13.1 g/dL (12.0-16.0); Lymphocyte % 21.8 %; Mean Corpuscular HGB Conc 34 g/dL (31-36); Mean Corpuscular Hemoglobin 34 pg (27-31); Mean Corpuscular Volume 102 fL (80-97); Mean Platelet Volume 8.7 fL (7.4-10.4); Nucleated Red Blood Cells % 0; Platelet Count 157 10^3/uL (150-450); Red Blood Count 3.82 10^6 /uL (3.70-4.87); Red Cell Distribution Width 14 % (10.5-15); White Blood Count 10.4 10^3/uL (3.5-10.8)
[2019-01-14 16:38] LABS: Albumin 4.3 g/dL (3.2-5.2); Albumin/Globulin Ratio 1.7 (1-3); BUN/Creatinine Ratio 19.7 (8-20); C Reactive Protein 4.87 mg/L (<8.01); Calcium 10.3 mg/dL (8.6-10.3); EGFR Non-African American 36.4 (>60); Globulin 2.5 g/dL (2-4); Potassium 4.5 mmol/L (3.5-5.0); Total Bilirubin 0.3 mg/dL (0.2-1.0); Total Protein 6.8 g/dL (6.4-8.9)
[2019-01-14] MEDS ORDERED: ceFOXitin(*) 1 GM in NS 0.9% 50 ML* 50 ML IVPB ONE (16:41)
[2019-01-14] MEDS ORDERED: ceFOXitin 2 GM IVPREMIX* 0 GM/0 ML BAG ONE (17:11)
[2019-01-14] MEDS ORDERED: Ondansetron INJ* 2 MG/ML VIAL IV ONE (18:05)
[2019-01-14] MEDS ORDERED: Morphine INJ* 10 MG/ML 1 ML CARPUJECT IV ONE (18:05)
[2019-01-14] MEDS ORDERED: Morphine 4 MG/ML VIAL (1 ml) 4 MG/ML VIAL IV ONE (18:15)
== END 2019-01-14 18:20 | disposition short-term general hospital (02) ==
LOC: ED 15:44
DX: I77.1 Stricture of artery (principal); I25.119 Atherosclerotic heart disease of native coronary artery with unspecified angina pectoris; I25.2 Old myocardial infarction; Z79.01 Long term (current) use of anticoagulants; Z95.5 Presence of coronary angioplasty implant and graft; J44.9 Chronic obstructive pulmonary disease, unspecified; I12.9 Hypertensive chronic kidney disease with stage 1 through stage 4 chronic kidney disease, or unspecified chronic kidney disease; N18.9 Chronic kidney disease, unspecified; F17.210 Nicotine dependence, cigarettes, uncomplicated
CPT/HCPCS: 36415; 80053; 85025; 85730; 86140; 96374; 96375; 99283; J0694; J2270; J2405

== ENCOUNTER 2019-12-21 01:57 | Emergency (ER) | payer MEDICARE, MEDICAID ==
--- NOTE | 2019-12-21 03:24 | ED ---
Complex/Multi-Sys Presentation - HPI Summary HPI Summary: 75 year old female presents to the ED with a chief complaint of severe bruising on her lower extremities starting yesterday. Patient also reports chest pain and fatigue. The chest pain is intermittent stinging, with each sting lasting a second. Patient denies feeling lightheaded. Patient is a former 2 ppd tobacco smoker, currently she smokes 4 cigarettes per day. PMHx of AL in 1985. - History Of Current Complaint Time Seen by Provider: 12/21/19 03:02 Hx Obtained From: Patient Onset/Duration: Lasting Days, Still Present Timing: Constant, Intermittent, Lasting:, Seconds Severity Currently: Mild Severity Initially: Mild Location: Pain At: - chest, legs Associated Signs And Symptoms: Positive: Chest Pain, Other - ecchymosis - Allergies/Home Medications Allergies/Adverse Reactions: Allergies Allergy/AdvReac Type Severity Reaction Status Date / Time No Known Allergies Allergy Verified 09/18/17 08:39 Home Medications: Home Medications Atenolol TAB* [Tenormin TAB* 50 MG] 25 mg PO DAILY 09/19/12 [History Confirmed 01/14/19] Pantoprazole TAB * [Protonix TAB*] 40 mg PO BID 09/30/15 [History Confirmed 12/03] oxyCODONE TAB* [Roxycodone TAB 5 mg*] 5 mg PO Q4HR PRN 09/30/15 [History Confirmed 01/14/19] Clopidogrel TAB* [Plavix TAB*] 75 mg PO DAILY 10/21/15 [History Confirmed ] Lisinopril TAB* [Prinivil TAB 5 MG*] 10 mg PO DAILY 10/21/15 [History Confirmed 01/14/19] Multivitamins/Minerals TAB* [Theragran/minerals TAB*] 1 tab PO DAILY 10/21/15 [ History Confirmed 01/14/19] Rosuvastatin (NF) [Crestor (NF)] 5 mg PO DAILY 10/21/15 [History Confirmed 01/14] Senna TAB 8.6 mg* [Senokot 8.6 mg TAB*] 1 - 2 tab PO BID PRN 10/21/15 [History Confirmed 01/14/19] ALPRAZolam TAB* [Xanax TAB*] 0.5 mg PO BID PRN #0 tab MDD 1mg 05/29/17 [Rx Confirmed 01/14/19] Amitriptyline TAB* [Elavil TAB*] 25 mg PO BEDTIME #30 tab 05/29/17 [Rx Confirmed 01/14/19] Aspirin EC TAB* [Ecotrin EC Low Dose 81 MG*] 81 mg PO DAILY tab.ec 05/29/17 [ Rx Confirmed 01/14/19] Levothyroxine TAB* [Synthroid 125 MCG TAB*] 125 mcg PO DAILY@0600 tab 05/29/17 [Rx Confirmed 01/14/19] Mirtazapine TAB* [Remeron TAB*] 15 mg PO BEDTIME #30 tab 05/29/17 [Rx Confirmed 01/14/19] PMH/Surg Hx/FS Hx/Imm Hx Endocrine/Hematology History: Reports: Hx Anticoagulant Therapy - plavix, Hx Thyroid Disease - hypothryroid, Other Endocrine/Hematological Disorders - pancreatitis Denies: Hx Diabetes, Hx Systemic Lupus Erythematosus Cardiovascular History: Reports: Hx Angina, Hx Coronary Artery Disease, Hx Hypercholesterolemia, Hx Hypertension, Hx Myocardial Infarction - at age 41 y.o. 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 Denies: Other Problems/Disorders - "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" Musculoskeletal History: Reports: Hx Arthritis, Hx Back Problems, Hx Fibromyalgia, Hx Osteoporosis, Hx Scoliosis, Other Musculoskeletal History - herniated discs x2, carpal tunnel Denies: Hx Rheumatoid Arthritis Sensory History: Reports: Hx Cataracts - R eye, Hx Hearing Problem - Pt states she cannot hear with her left ear Denies: Hx Contacts or Glasses, Hx Hearing Aid Opthamlomology History: Reports: Hx Cataracts - R eye Denies: Hx Contacts or Glasses Neurological History: Reports: Hx Headaches, Other Neuro Impairments/Disorders - intermittent R leg numbness, migraines Psychiatric History: Reports: Hx Anxiety, Hx Depression, Hx of Violent Episodes Against Others Denies: Hx Eating Disorder, Hx Panic Disorder - Surgical History Surgery Procedure, Year, and Place: ILIOFEMORAL BYPASS RT SIDE,. CHOLECYSTECTOMY,. hysterectomy,. AORTIC STENTS,. BI-LAT FEMORAL GRAFTS,. CARPAL TUNNEL RT WRIST. CYST REMOVED FROM BACK. ECTOPIC . TONSILECTOMY - Family History Known Family History: Positive: Cardiac Disease - Social History Alcohol Use: None Hx Substance Use: No Substance Use Type: Reports: None Substance Use Comment - Amount & Last Used: OXYCODONE Hx Tobacco Use: Yes Smoking Status (MU): Current Every Day Smoker Type: Cigarettes Amount Used/How Often: 10-15/day Length of Time of Smoking/Using Tobacco: 56 years Have You Smoked in the Last Year: Yes Review of Systems Positive: Chest Pain Positive: Myalgia Positive: Bruising All Other Systems Reviewed And Are Negative: Yes Physical Exam - Summary Physical Exam Summary: Appearance: Well-appearing, Well-nourished, lying in bed comfortably Skin: Warm, dry, no obvious rash Eyes: sclera anicteric, no conjunctival pallor HENT: mucous membranes moist, pharynx appears normal Neck: Supple, nontender Respiratory: Clear to auscultation, no signs of respiratory distress Cardiovascular: Normal S1, S2. No murmurs. Normal distal pulses in tibial and radial bilaterally. Abdomen: Soft, nontender, normal active bowel sounds present Musculoskeletal: Normal, Strength/ROM Intact. Scattered bruises on posterolateral thighs without significant swelling or hematoma. Neurological: A&Ox3, awake and alert, mentation is normal, speech is fluent and appropriate Psychiatric: affect is normal, does not appear anxious or depressed Triage Information Reviewed: Yes Vital Signs Reviewed: Yes Procedures - Sedation Patient Received Moderate/Deep Sedation with Procedure: No Diagnostics - Laboratory Result Diagrams: 12/21/19 03:50 12/21/19 03:50 Lab Statement: Any lab studies that have been ordered have been reviewed, and results considered in the medical decision making process. - EKG 0303 Cardiac Rate: NL - 62 bpm EKG Rhythm: Sinus Rhythm ST Segment: Normal Ectopy: None Summary of EKG Findings: NSR at 62 BPM, P waves, QRS complex, and T waves are within normal limits, T waves and intervals are normal, no ischemic changes. This is a normal EKG. Complex Multi-Symp Course/Dx Course Of Treatment: 75 year old female presents to the ED with a chief complaint of severe bruising on her lower extremities starting yesterday. Patient also reports chest pain and fatigue. The chest pain is intermittent stinging, with each sting lasting a second. Patient denies feeling lightheaded. Patient is a former 2 ppd tobacco smoker, currently she smokes 4 cigarettes per day. PMHx of AL in 1985. Physical exam is normal except for multiple contusions on her thighs. EKG is normal. Lab shows RBC 2.71, Hgb 27, MCV 101, MCH 34, INR 1.47, chloride 113, BUN 32, creatinine 1.40, BUN/Creatinine 22.9, alk phos 112, and total protein 5.9. Diagnosis is multiple contusions. Patient will be discharged home, with follow up in 2-3 days. Patient understands and agrees with plan. - Diagnoses Provider Diagnoses: Multiple contusions Discharge ED - Sign-Out/Discharge Documenting (check all that apply): Patient Departure - discharge home - Discharge Plan Condition: Good Disposition: HOME Patient Education Materials: Contusion in Adults (ED) Referrals: Camila Rodriguez MD [Primary Care Provider] - Additional Instructions: Your blood counts did drop a bit, but not nearly enough to require a transfusion. You should be ok to go home and check in with your regular doctor in followup this week. The tests on the heart also came back normal, so not to worry about the heart. - Billing Disposition and Condition Condition: GOOD Disposition: Home - Attestation Statements Document Initiated by Carlos: Yes Documenting Scribe: Hebert Serrato Provider For Whom Carlos is Documenting (Include Credential): Dr. Mayank Gonazlez Attestation: I, Hebert Serrato, scribed for Dr. Mayank Rivera on 12/22/19 at 0213. Scribe Documentation Reviewed: Yes Provider Attestation: The documentation as recorded by the [email or web address] accurately reflects the service I personally performed and the decisions made by me, Dr. Mayank Rivera Status of Scribomi Document: Viewed
--- OUTSIDE RECORDS SUMMARY | 2019-12-21 03:31 | XMS REPORT | Summary of Care ---
:1945 Author Organization [facility] Address [address] [facility] [place] [address] Care Team Providers Name Role Phone Camila Rodriguez MD Primary Care Provider Reason for Visit Reason Comments Peripheral Vascular Disease pt. here w/ Hx: bilat. leg- bypass. pt. w/ c/o right foot pain & right toe discoloration Encounter Details Date Type Department Care Team Description 11/19/2019 Office Visit [facility] Maria Esther Chance, Thrombosis of Surgery SYSTEMS PROGRAM MANAGER femoro-popliteal [address] bypass graft, initial [place] [id number] [place] [address] encounter (HCC) [phone] (Primary Dx) Allergies No Known Allergiesdocumented as of this encounter (statuses as of 11/20/2019) Medications Medication Sig Dispensed Refills Start Date End Date Status atenolol (TENORMIN) 25 Take 25 mg by 0 Active MG Oral Tab mouth DAILY. levothyroxine Take 125 mcg by 0 Active (SYNTHROID) 125 MCG mouth BEFORE Oral Tab BREAKFAST. clopidogrel (PLAVIX) 75 Take 75 mg by 0 Active MG Oral Tab mouth DAILY. Rosuvastatin Calcium Take 5 mg by 0 Active (CRESTOR) 5 MG Oral Tab mouth DAILY. pantoprazole (PROTONIX) Take 40 mg by 0 Active 40 MG Oral Tab EC mouth TWICE DAILY. Aspirin 81 MG Oral Tab Take 81 mg by 0 Active mouth DAILY. mirtazapine (REMERON) Take 30 mg by 0 Active 15 MG Oral Tab mouth EVERY BEDTIME. Cinacalcet HCl Take 30 mg by 0 Active (SENSIPAR) 30 MG Oral mouth DAILY. Tab Sennosides (SENOKOT PO) Take by mouth [address] 0.4 mg 0 Active (NITROSTAT) 0.4 MG under tongue Sublingual SL Tab EVERY FIVE MINUTES NEEDED for chest pain. rivaroxaban (XARELTO) Take 1 Tab by 12 Tab 0 01/28/2019 Active 10 MG Oral Tab mouth DAILY. OXYcodone Take 1 Tab by 15 Tab 0 01/27/2019 Active (OXY-IR,OXY-FAST) 5 MG mouth EVERY FOUR Oral Tab HOURS NEEDED (pain). Max Daily Amount: 30 mg. mdd6 pt taking differently: 1q4h Magnesium Hydroxide Take by mouth 0 Active (MILK OF MAGNESIA PO) NEEDED. Varenicline Tartrate Take 2 Tabs by 0 Active (CHANTIX) 0.5 MG Oral mouth DAILY. Tab pregabalin (LYRICA) 25 Take 1 Cap by 30 Cap 0 04/16/2019 Active MG Oral Cap mouth DAILY. Max Daily Amount: 25 mg. Additional information Patient taking differently: 50 mg Oral BID, Reported on 09/08/2019 1:13 PM amLodipine (NORVASC) 5 MG Oral Take 1 Tab by mouth DAILY. 30 Tab 0 2018 Active Tab Additional information Patient taking differently: 2.5 mg Oral DAILY, Reported on 09/08/2019 1:13 PM documented as of this encounter (statuses as of 11/20/2019) Active Problems Problem Noted Date 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 Overview: Added automatically from request for surgery [id number] PVD (peripheral vascular disease) 05/23/2019 Overview: Added automatically from request for surgery [id number] Bypass graft stenosis 05/23/2019 Overview: Added automatically from request for surgery [id number] Closed nondisplaced fracture of triquetral bone of right wrist 10/23/2017 documented as of this encounter (statuses as of 11/20/2019) Social History Tobacco Use Types Packs/Day Years Used Date Current Every Day Smoker Cigarettes 0.25 Smokeless Tobacco: Never Used Alcohol Use Drinks/Week oz/Week Comments No Sex Assigned at Date Recorded Not on file Job Start Date Occupation Industry Not on file Not on file Not on file Travel History Travel Start Travel End No recent travel history available. documented as of this encounter Last Filed Vital Signs Vital Sign Reading Time Taken Comments Blood Pressure 110/70 11/19/2019 10:37 AM EST Pulse 58 11/19/2019 10:37 AM EST Temperature - - Respiratory Rate - - Oxygen Saturation - - Inhaled Oxygen Concentration - - Weight 54.4 kg (120 lb) 11/19/2019 10:37 AM EST Height 162.6 cm (5' 4") 11/19/2019 10:37 AM EST Body Mass Index 20.6 11/19/2019 10:37 AM EST documented in this encounter Progress Notes Maria Esther Chance CRNP - 11/19/2019 10:20 AM EST PATIENT: Rani Lambert : 1945 DATE OF SERVICE: 11/19/2019 REFERRING PRACTITIONER: Self-Referred PRIMARY CARE PROVIDER: Camila Rodriguez Subjective CHIEF COMPLAINT: Chief Complaint Patient presents with Peripheral Vascular Disease pt. here w/ Hx: bilat. leg- bypass. pt. w/ c/o right foot pain & right toe discoloration Subjective HISTORY OF PRESENT ILLNESS: Rani Lambert is a 74-y.o. female who is seen today with one week history of right leg and foot pain. Today she notes increased numbness and tingling of the right foot. She also notes claudication. She states she has been taking her aspirin, Plavix and Xarelto. She has past medical history significant for hypertension and peripheral vascular disease. She has history of Right external iliac to below knee popliteal bypass, left external iliac to above knee popliteal bypass with popliteal endarterectomy preformed at another facility. She presented on 01/15/19 with occluded bypass graft and ischemic rest pain. She s/p 01/15/19 Open thrombectomy right external iliac to below knee popliteal PTFE bypass graft through groin and below knee incisions with angiograms and intraoperative thrombolysis with5 mg tpa She is s/p on 01/16/19: RIGHT LEG ANTERIOR AND LATERAL FASCIOTOMY THROUGH ONE INCISION S/p on 01/16/19: OPEN THROMBECTOMY RIGHT FEM POP PTFE GRAFT WITH BOVINE PERICARDIAL PATCH ANGIOPLASTY OF POPLITEAL AND TIBIAL VESSEL She is s/p on 01/23/19: RIGHT LEG FASCIOTOMY CLOSURE Wound size 15 cm by 1.5 cm She is s/p on 07/03/[address] Pineda: Open right femoral artery exposure through incision of rightleg PTFE prosthetic bypass graft 2. Open thrombectomy of right femoral to popliteal bypass graft 3.Stenting right common and external iliac artery extending from previously placed stent well into the external iliac artery. 7 mm x 80 mm [employer] Epic stent post dilated with 6 mm x 60 mm balloon. 4. Balloon angioplasty right popliteal artery below graft anastomosis and anterior tibial artery with [employer] David balloons: 2 mm x 40 mm, then 2.5 mm x 40 mm, then 3 mm x 40 mm by PREVIOUS DIAGNOSTIC TESTS: 07/04/19 IMPRESSIONS: Hx: Claudication with intervention. PVRs and dopplers of the right lower extremity indicates mild PVS in the thigh, calf, ankle, metatarsal and severe in toe with biphasic dopplers PVRs and dopplers of the left lower extremity indicates normal PVS throughout with Triphasic/triphasic dopplers Rt NORBERTO 0.59 Lt NORBERTO 0.96 NORBERTO Value: Over 1.3 (Noncompressible), 0.90-1.3 (Normal, 0.89 - 0.60 (Mild), 0.59-0.40 (Moderate), Under 0.40 (Severe) Current Outpatient Medications Medication Sig amLodipine (NORVASC) 5 MG Oral Tab Take 1 Tab by mouth DAILY. (Patient taking differently: Take 2.5 mg by mouth DAILY.) Aspirin 81 MG Oral Tab Take 81 mg by mouth DAILY. atenolol (TENORMIN) 25 MG Oral Tab Take 25 mg by mouth DAILY. Cinacalcet HCl (SENSIPAR) 30 MG Oral Tab Take 30 mg by mouth DAILY. clopidogrel (PLAVIX) 75 MG Oral Tab Take 75 mg by mouth DAILY. levothyroxine (SYNTHROID) 125 MCG Oral Tab Take 125 mcg by mouth BEFORE BREAKFAST. Magnesium Hydroxide (MILK OF MAGNESIA PO) Take by mouth NEEDED. mirtazapine (REMERON) 15 MG Oral Tab Take 30 mg by mouth EVERY BEDTIME. nitroglycerin (NITROSTAT) 0.4 MG Sublingual SL Tab Place 0.4 mg under tongue EVERY FIVE MINUTES NEEDED for chest pain. OXYcodone (OXY-IR,OXY-FAST) 5 MG Oral Tab Take 1 Tab by mouth EVERY FOUR HOURS NEEDED (pain). Max Daily Amount: 30 mg. mdd6 pt taking differently: 1q4h pantoprazole (PROTONIX) 40 MG Oral Tab EC Take 40 mg by mouth TWICE DAILY. pregabalin (LYRICA) 25 MG Oral Cap Take 1 Cap by mouth DAILY. Max Daily Amount: 25 mg. (Patient taking differently: Take 50 mg by mouth TWICE DAILY.) rivaroxaban (XARELTO) 10 MG Oral Tab Take 1 Tab by mouth DAILY. Rosuvastatin Calcium (CRESTOR) 5 MG Oral Tab Take 5 mg by mouth DAILY. Sennosides (SENOKOT PO) Take by mouth DAILY. Varenicline Tartrate (CHANTIX) 0.5 MG Oral Tab Take 2 Tabs by mouth DAILY. No current facility-administered medications for this visit. No Known Allergies Review of Systems - Negative except as stated in the hpi all other pertinent systems are negative Objective PHYSICAL EXAMINATION: VITALS: BP 110/70 (BP Location: Left arm, Patient Position: Sitting) | Pulse 58 | Ht 5' 4" (1.626m) | Wt 120 lb (54.4 kg) | BMI 20.60 kg/m GENERAL: awake, alert, oriented. LUNGS: Clear to auscultation bilaterally HEART: Regular rate and rhythm EXTREMITIES: no edema bilaterally PULSES: left dorsalis dopplerable, right dorsalis dopplerable, left posterior tibialis dopplerable and right posterior tibialis dopplerable. FEET: Equal in warmth bilaterally no ulcerations or discoloration noted. DIAGNOSTICS: 11/19/2019 IMPRESSIONS: right iliac to common femoral/femoral to anterior tibial artery bypass with increased pain in leg and foot Duplex imaging of the right iliac to common femoral/femoral to anterior tibial artery bypass demonstrates a widely patent iliac to common femoral graft without evidence of elevated velocities. The femoral to anterior tibial bypass is occluded without evidence of color flow or a doppler signal. The occluded femoral to anterior tibial bypass is new since the previous exam of . IMPRESSION IMPRESSIONS: right iliac to common femoral/femoral to anterior tibial artery bypass with increased pain in leg and foot PVRs of the right thigh are mild, moderate in the calf and ankle, severe in the metatarsal and absent in the digit. Dopplers of the right DPA and BRAND SALES MANAGER are monophasic. Rt NORBERTO 0.50 PVRs of the left thigh, calf, ankle, metatarsal and digit are normal to mild. Dopplers of the left DPA and BRAND SALES MANAGER are triphasic. Lt NORBERTO 1.0 NORBERTO Value: Over 1.3 (Noncompressible), 0.90-1.3 (Normal, 0.89 - 0.60 (Mild), 0.59-0.40 (Moderate), Under 0.40 (Severe) The right leg PVRs, dopplers and NORBERTO have worsened since the previous exam of 10/06/19. Plan IMPRESSION AND PLAN: Rani Lambert has occluded right femoral to popliteal bypass with decrease in norberto 's to 0.5 and right foot rest pain. I discussed options of continuing observation or proceeding with percutaneous or open thrombectomy with angiogram with angioplasty and stenting possible thrombolysis. I noted that thiswould be 3rd intervention on the bypass and it has been occluded for a week so it may not be able larry reopened. She verbalized understanding and wishes to proceed with intervention. I dicussed risks, options and benefits to include but not limited to bleeding, infection, injury to blood vessel, injury to kidneys from dye, inability to open or early reocclusion. She verbalized understanding and wishes to proceed. I will call with date and time. ICD-9-CM ICD-10-CM 1. Thrombosis of femoro-popliteal bypass graft, initial encounter ([facility]) 996.74 T82.868A CASE REQUESTOPERATING ROOM 444. I called and spoke with Rani she is scheduled for 11/25/2019 with a 1 pm arrival time. She will stop Xarelto 4 days prior and continue with aspirin and plavix. She is aware nothing to eat after midnight and clear liquids up to 10: 00 am on day of surgery. Discussed with Dr. Pineda who is in agreement with the assessment and plan. Author: MARY Perry 11/20/2019 17:00 documented in this encounter Plan of Treatment Date Type Specialty Care Team Description 11/25/2019 Hospital Encounter Acute Care Moisés Pineda Short Procedure [facility] MD [place] [address] [address] 11/25/2019 Surgery Acute Care Moisés Pineda right leg [facility] MD [place] percutaneous or open [address] thrombectomy with [place] [address] possible thrombolysis [phone] with angiogram [phone] possible angioplasty (Fax) or stenting 04/05/2020 Ancillary Radiology Procedure 04/05/2020 Ancillary Radiology Procedure 04/05/2020 Office Visit Vascular Surgery Moisés Pineda MD [address] [address] [phone] Name Type Priority Associated Diagnoses Order Schedule CASE REQUEST OPERATING Procedures Routine Thrombosis of Ordered: 11/19/2019 ROOM femoro-popliteal bypass graft, initial encounter (HCC) Health Maintenance Due Date Last Done Comments MEDICARE ANNUAL WELLNESS VISIT 1945 DTaP/Tdap/Td Vaccines (1 - Tdap) 1958 DEPRESSION SCREENING 1959 HIV SCREENING 1962 LIPID DISORDER SCREENING 1965 HEPATITIS C SCREENING 1987 MAMMOGRAM (SCREENING) 1987 Colonoscopy 1997 ZOSTER IMMUNIZATION SERIES (1 of 2) 1997 FALL RISK ASSESSMENT 01/10/2012 OSTEOPOROSIS SCREENING 01/10/2012 PNEUMOCOCCAL 65+YRS (1 of 2 - 01/10/2012 PCV13) INFLUENZA VACCINE (#1) 2019 HEPATITIS A IMMUNIZATION SERIES Aged Out No longer eligible based on patient's age to complete this topic HPV IMMUNIZATION SERIES Aged Out No longer eligible based on patient's age to complete this topic MENINGOCOCCAL VACCINE IMM Aged Out No longer eligible based on patient's age to complete this topic documented as of this encounter Implants Implanted Type Area Lead Shipper Device Shelf Model / Identifier Expiration Serial / Date Lot [employer]ari Biologic Patch .8 X 8cm - [id number] Right: LEMAITRE 03/11/2024 [id number] / Implanted: Qty: 1 on 01/16/2019 by Moisés Pineda MD at [facility] Popliteal / [id number] Description:Popliteal-Tibial Artery Epic Stent [id number] - [id number] Right: Iliac Artoo [employer] 2018 [id number] / Implanted: Qty: 1 on 07/03/2019 by Moisés Pineda MD at [facility] / [id number] Description:Right External Iliac Artery documented as of this encounter Results Not on filedocumented in this encounter Visit Diagnoses Diagnosis Thrombosis of femoro-popliteal bypass graft, initial encounter (HCC) Diagnosis Thrombosis of femoro-popliteal bypass graft (HCC) Other complications due to other vascular device, implant, and graft Diagnosis Thrombosis of femoro-popliteal bypass graft, initial encounter (HCC) documented in this encounter Insurance Payer Benefit Plan / Subscriber ID Effective Dates Phone Address Type Group MEDICARE MEDICARE PART A xxxxxxxxxxx 2011-Present Medicare & B MEDICAID [facility] xxxxxxxx 2017-Present [place] documented as of this encounter Advance Directives Code Status Date Activated Date Inactivated Comments Full Code 01/16/2019 5:03 PM 01/27/2019 1:51 PM Does the patient have decision making capacity? Yes Order was discussed with: Patient I discussed all options and patient/surrogate requested and agreed to: Full Code Full Code 01/14/2019 9:54 PM 01/16/2019 5:03 PM Does the patient have decision making capacity? Yes Order was discussed with: Patient I discussed all options and patient/surrogate requested and agreed to: Full Code
--- OUTSIDE RECORDS SUMMARY | 2019-12-21 03:31 | XMS REPORT | Summary of Care ---
:1945 Author Organization [facility] Address [address] [facility] [place] [address] Care Team Providers Name Role Phone Camila Rodriguez MD Primary Care Provider Reason for Visit Reason Comments Surgical Followup s/p right leg angioplasty 11/25/19. c/o right leg & foot pain / numbness. pt. w/ pain w/ right groin incision. Encounter Details Date Type Department Care Team Description 12/03/2019 Office Visit Maria Esther Hendricks, Post-operative state (Primary Dx); Surgery R&D ENGINEER PVD (peripheral vascular disease) ([facility]) [address] [facility] [place] [address] [place] [address] [phone] Allergies No Known Allergiesdocumented as of this encounter (statuses as of 12/03/2019) Medications Medication Sig Dispensed Refills Start Date [...] DAILY. Max Daily Amount: 25 mg. Additional Information Patient taking differently: 50 mg Oral BID, Reported on 09/08/2019 1:13 PM amLodipine (NORVASC) 5 MG Oral Take 1 Tab by mouth DAILY. 30 Tab 0 2018 Active Tab Additional Information Patient taking differently: 2.5 mg Oral DAILY, Reported on 09/08/2019 1:13 PM nicotine transdermal patch-daily Place 14 mg onto skin DAILY. 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/2019 Overview: Added automatically from request for surgery [id number] Closed nondisplaced fracture of triquetral bone of right wrist 10/23/2017 documented as of this encounter (statuses as of 12/03/2019) Social History Tobacco Use Types Packs/Day Years Used Date Current Every Day Smoker Cigarettes 0.25 Smokeless Tobacco: Never Used Alcohol Use Drinks/Week oz/Week Comments No Sex Assigned at Date Recorded Not on file documented as of this encounter Last Filed Vital Signs Vital Sign Reading Time Taken Comments Blood Pressure 130/68 12/03/2019 2:01 PM EST Pulse 60 12/03/2019 2:01 PM EST Temperature 36.7 12/03/2019 2:01 PM EST C (98 F) Respiratory Rate - - Oxygen Saturation - - Inhaled Oxygen Concentration - - Weight 54 kg (119 lb) 12/03/2019 2:01 PM EST Height 162.6 cm (5' 4") 12/03/2019 2:01 PM EST Body Mass Index 20.43 12/03/2019 2:01 PM EST documented in this encounter Progress Notes Maria Esther Chance CRNP - 12/03/2019 1:20 PM EST PATIENT: Rani Lambert : 1945 DATE OF SERVICE: 12/03/2019 REFERRING PRACTITIONER: Moisés Pineda PRIMARY CARE PROVIDER: Camila Rodriguez Subjective CHIEF COMPLAINT: Chief Complaint Patient presents with ? Surgical Followup s/p right leg angioplasty 11/25/19. c/o right leg & foot pain / numbness. pt. w/ pain w/ right groin incision. Subjective HISTORY OF PRESENT ILLNESS: Rani Lambert is a 74-y.o. female who is seen in follow up. She is s/p. 1. Open exposure occluded right external iliac to below-knee popliteal PTFE bypass graft 2. Thrombectomy of occluded bypass graft 3. Balloon angioplasty right anterior tibial artery with 2 mm x 220 mm [employer] David balloon and balloon angioplasty proximal anterior tibial artery and popliteal artery with 3 mm [employer] balloon by Dr. Pineda on 11/25/2019. Today she notes some discomfort at right groin incision site. She notes small amount of bloody drainage. She denies any fevers or chills. She denies pain in the right foot but notes right foot numbness. PREVIOUS DIAGNOSTIC TESTS: 11/19/2019 IMPRESSIONS: right iliac to common femoral/femoral to anterior tibial artery bypass with increased pain in leg and foot ? PVRs of the right thigh are mild, moderate in the calf and ankle, severe in the metatarsal and absent in the digit. ? Dopplers of the right DPA and POULTICE MACHINE OPERATOR are monophasic. ? Rt NORBERTO 0.50 ? PVRs of the left thigh, calf, ankle, metatarsal and digit are normal to mild. ? Dopplers of the left DPA and POULTICE MACHINE OPERATOR are triphasic. ? Lt NORBERTO 1.0 ? NORBERTO Value: Over 1.3 (Noncompressible), 0.90-1.3 (Normal, 0.89 - 0.60 (Mild), 0.59-0.40 (Moderate), Under 0.40 (Severe) ? The right leg PVRs, dopplers and NORBERTO have worsened since the previous exam of 10/06/19. Current Outpatient Medications Medication Sig ? amLodipine (NORVASC) 5 MG Oral Tab Take 1 Tab by mouth DAILY. (Patient taking differently: Take 2.5 mg by mouth DAILY.) ? Aspirin 81 MG Oral Tab Take 81 mg by mouth DAILY. ? atenolol (TENORMIN) 25 MG Oral Tab Take 25 mg by mouth DAILY. ? Cinacalcet HCl (SENSIPAR) 30 MG Oral Tab Take 30 mg by mouth DAILY. ? clopidogrel (PLAVIX) 75 MG Oral Tab Take 75 mg by mouth DAILY. ? levothyroxine (SYNTHROID) 125 MCG Oral Tab Take 125 mcg by mouth BEFORE BREAKFAST. ? Magnesium Hydroxide (MILK OF MAGNESIA PO) Take by mouth NEEDED. ? mirtazapine (REMERON) 15 MG Oral Tab Take 30 mg by mouth EVERY BEDTIME. ? nicotine transdermal patch-daily (NICODERM) 14 MG/24HR Transdermal PATCH [address] 14 mg onto skin DAILY. ? nitroglycerin (NITROSTAT) 0.4 MG Sub[address] SL Tab Place 0.4 mg under tongue EVERY FIVE MINUTES NEEDED for chest pain. ? OXYcodone (OXY-IR,OXY-FAST) 5 MG Oral Tab Take 1 Tab by mouth EVERY FOUR HOURS NEEDED (pain). Max Daily Amount: 30 mg. [id number] pt taking differently: 1q4h ? pantoprazole (PROTONIX) 40 MG Oral Tab EC Take 40 mg by mouth TWICE DAILY. ? pregabalin (LYRICA) 25 MG Oral Cap Take 1 Cap by mouth DAILY. Max Daily Amount: 25 mg. (Patient taking differently: Take 50 mg by mouth TWICE DAILY.) ? rivaroxaban (XARELTO) 10 MG Oral Tab Take 1 Tab by mouth DAILY. ? Rosuvastatin Calcium (CRESTOR) 5 MG Oral Tab Take 5 mg by mouth DAILY. ? Sennosides (SENOKOT PO) Take by mouth DAILY. ? Varenicline Tartrate (CHANTIX) 0.5 MG Oral Tab Take 2 Tabs by mouth DAILY. No current facility-administered medications for this visit. No Known Allergies\\ Review of Systems - Negative except as stated in the hpi Objective PHYSICAL EXAMINATION: VITALS: BP 130/68 (BP Location: Left arm, Patient Position: Sitting) | Pulse 60 | Temp 98 F (36.7 C) | Ht 5' 4" (1.626 m) | Wt 119 lb (54 kg) | BMI 20.43 kg/m GENERAL: awake, alert, oriented. EXTREMITIES: Mild edema of the right foot . NEUROLOGICAL: Able to move toes on the right foot. PULSES: right dorsalis dopplerable and right posterior tibialis dopplerable. INCISION: Right groin wound dry and closed, free of signs and symptoms of infection, notable for some ecchymosis lower abdominal, mild swelling. DIAGNOSTICS: Right 1.02 and left 1.05 with triphasic DP and Pt bilaterally with Normal PVR's bilaterally Plan IMPRESSION AND PLAN: Rani Lambert is progressing well. She is one week s/p Thrombectomy of occluded bypass graft 3. Balloon angioplasty right anterior tibial artery with 2 mm x 220 mm [employer] David balloon and balloon angioplasty proximal anterior tibial artery and popliteal artery with 3 mm [employer] David balloon. The right groin wound is healing well, dry and closed, free of signs and symptoms of infection, notable for some ecchymosis in lower abdomen. Mepilex dressing was applied she was instructed to remove it in 7 days and was instructed on how to reapply another one. Arterial studiestoday indicate improvement in right norberto to normal. Continue current medications ICD-9-CM ICD-10-CM 1. Post-operative state V45.89 Z98.890 2. PVD (peripheral vascular disease) ([facility]) 443.9 I73.9 The patient will follow up in the Vascular Department in 2 weeks or sooner if problems arise Author: MARY Perry 12/03/2019 17:04 documented in this encounter Plan of Treatment Date Type Specialty Care Team Description 12/17/2019 Office Visit Vascular Surgery Maria Esther Chance CRNP [address] [place] [address] [phone] 04/05/2020 Ancillary Procedure Radiology 04/05/2020 Ancillary Procedure Radiology 04/05/2020 Office Visit Vascular Surgery Moisés Pineda MD [address] [place] [address] [phone] Health Maintenance Due Date Last Done Comments [...] of this encounter Implants Implanted Type Area Sourcing Intern Device Shelf Model / Identifier Expiration Serial / Date Lot Cari Biologic Patch .8 X 8cm - [id number] Right: LEMAITRE 03/11/2024 [id number] / Implanted: Qty: 1 on 01/16/2019 by Moisés Pineda MD at [facility] Popliteal / [id number] Description:Popliteal-Tibial Artery Epic Stent [id number] - [id number] Right: Iliac [employer] 2018 [id number] / Implanted: Qty: 1 on 07/03/2019 by Moisés Pineda MD at [facility] / [id number] Description:Right External Iliac Artery documented as of this encounter Results Not on filedocumented in this encounter Visit Diagnoses Diagnosis Post-operative state Other postprocedural status PVD (peripheral vascular disease) (HCC) Peripheral vascular disease, unspecified documented in this encounter Insurance Payer Benefit Plan / Subscriber ID Effective Dates Phone Address Type Group MEDICARE MEDICARE PART A [id number] 2011-Present Medicare & B MEDICAID [facility] [id number] 2017-Present [place] documented as of this encounter Advance [...]
--- OUTSIDE RECORDS SUMMARY | 2019-12-21 03:31 | XMS REPORT | Summary of Care ---
:1945 Author Organization [facility] Address [address] [place] [address] Care Team Providers Name Role Phone Camila Rodriguez MD Primary Care Provider Reason for Visit Auth/Cert Status Reason Specialty Diagnoses / Procedures Referred By Referred To Contact Contact Diagnoses Peripheral vascular disease, unspecified Procedures AR ANGIO AORTOBIFEMORAL W CATH AR ANGIO EXTREMITY UNILAT AR THROMBOLYSIS VENOUS INFUSION W/IMAGING INIT TX AR THROMBOLYSIS ART/VENOUS INFSN W/IMAGE SUBSQ TX AR REVSC OPN/PRQ FEM/POP W/STNT/ANGIOP SM VSL Encounter Details Date Type Department Care Team Description 11/25/2019 - Hospital Encounter H 4 [facility] PinedaJordy Short Procedure 11/26/2019 1 [place] [address] [address] [phone] [place] [address] [phone] Allergies No Known Allergiesdocumented as of this encounter (statuses as of 11/27/2019) Medications Medication Sig Dispensed Refills Start Date [...] as of this encounter (statuses as of 11/27/2019) Active Problems Problem Noted Date 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 Overview: Added automatically from request for surgery [id number] PVD (peripheral vascular disease) 05/23/2019 Overview: Added automatically from request for surgery [id number] Bypass graft stenosis 05/23/2019 Overview: Added automatically from request for surgery [id number] Closed nondisplaced fracture of triquetral bone of right wrist 10/23/2017 documented as of this encounter (statuses as of 11/27/2019) Social History Tobacco Use Types Packs/Day Years Used Date Current Every Day Smoker Cigarettes 0.25 Smokeless Tobacco: Never Used Alcohol Use Drinks/Week oz/Week Comments No Sex Assigned at Date Recorded Not on file documented as of this encounter Last Filed Vital Signs Vital Sign Reading Time Taken Comments Blood Pressure 111/53 11/26/2019 2:30 PM EST Pulse 62 11/26/2019 4:02 PM EST Temperature 36.1 11/26/2019 2:30 PM C (96.9 EST F) Respiratory Rate 18 11/26/2019 2:30 PM EST Oxygen Saturation 98% 11/26/2019 4:02 PM EST Inhaled Oxygen Concentration - - Weight 56.1 kg (123 lb 11.2 oz) 11/25/2019 12:43 PM EST Height 162.6 cm (5' 4") 11/25/2019 12:43 PM EST Body Mass Index 21.23 11/25/2019 12:43 PM EST documented in this encounter Discharge Summaries Rosa Hoffman MD - 11/26/2019 4:00 PM EST [facility] [place]. [address] Discharge Summary Patient ID: Rani Lambert [id number] 74-y.o. 1945 Admission date: 11/25/2019 Discharge date: 11/26/2019 Admitting Physician: Jordy Pineda MD Indication for Admission: Thrombosis of femoro-popliteal bypass graft (HCC) Principal Diagnosis: Thrombosis of femoro-popliteal bypass graft (HCC) Other medical problems managed in the hospital: Hospital Problem list Noted * (Principal) Thrombosis of femoro-popliteal bypass graft (HCC) 11/19/2019 Non-Hospital Problem list Noted Closed nondisplaced fracture of triquetral bone of right wrist 10/23/2017 PVD (peripheral vascular disease) ([facility]) 05/23/2019 Bypass graft stenosis ([facility]) 05/23/2019 Discharged Condition: good Hospital Course: Rani Lambert is a 74-y.o. female admitted on 11/25/19 with a history of right lower extremity bypass open thrombectomy fasciotomy and fasciotomy closure is admitted under the vascular service and taken to the OR on the day of admission and underwent right leg open thrombectomy with angiogram and balloon angioplasty due to thrombosis of the femoral popliteal bypass graft which she tolerated well. Postoperatively, she was transferred to floor in stable condition. Upon discharge Rani Lambert is tolerating a general diet without nausea/emesis, pain is controlled on oral medications, she is ambulating independently, and she is voiding spontaneously. BP 110/57 Pulse 62 Temp 96.8 F (36 C) (Temporal) Resp 18 Ht 5' 4" ( 1.626 m) Wt 123 lb 11.2 oz (56.1 kg) SpO2 98% BMI 21.23 kg/m2 Consults: None Treatments: analgesia DVT Prophylaxis Young catheter IV hydration Procedures: Vl Body Measure Madelaine Multiple Result Date: 11/21/2019 NAME: Fausto Saravia BN: [id number] VASCULAR LAB ORDER # : [id number] [facility] STUDY DATE: 11/19/19 [address] [place] [place] [id number] : 49 AP: Dr Elisabet Banerjee MD REFERRING PROVIDER: Meron Mayo EXAMINATION: Arterial - Lower INDICATION: Pain in limb -729.5 TECHNOLOGIST: Miriam Pineda RDMS RVT IMPRESSIONS: right iliac to common femoral/femoral to anterior tibial artery bypass with increased pain in leg and foot PVRs of the right thigh are mild, moderate in the calf and ankle, severe in themetatarsal and absent in the digit. Dopplers of the right DPA and BALE BREAKER OPERATOR are monophasic. Rt MADELAINE 0.50 PVRs of the left thigh, calf, ankle, metatarsal and digit are normal to mild. Dopplers of the left DPA and BALE BREAKER OPERATOR are triphasic. Lt MADELAINE 1.0 MADELAINE Value: Over 1.3 ( Noncompressible), 0.90-1.3 (Normal, 0.89 - 0.60 (Mild), 0.59-0.40 (Moderate), Under 0.40 (Severe) The right leg PVRs, dopplers and MADELAINE have worsened since the previous exam of 10/06/19. Vl Lower Extremity Duplex Arteries Right Result Date: 11/21/2019 NAME: Fausto Saravia BN: [id number] VASCULAR LAB ORDER # : [id number] [facility] STUDY DATE: 11/19/19 1 [address] [place] [address] : 49 AP: Dr Elisabet Banerjee MD REFERRING PROVIDER: Meron Mayo EXAMINATION: Arterial - Lower INDICATION: Pain in limb -729.5 TECHNOLOGIST: Miriam Pineda RDMS RVT IMPRESSIONS: right iliac to common femoral/femoral to [...] new since the previous exam of . Operations: 11/25/2019 Procedure(s): right leg open thrombectomy with angiogram and balloon angioplasty Complications: None Medications: Current Discharge Medication List CONTINUE these medications which have changed amLodipine 5 MG Tabs Commonly known as: NORVASC Dose: 5 mg What changed: how much to take Quantity: 30 Tab Refills: 0 Take 1 Tab by mouth DAILY. pregabalin 25 MG Caps Commonly known as: LYRICA Dose: 25 mg What changed: how much to take when to take this Quantity: 30 Cap Refills: 0 Take 1 Cap by mouth DAILY. Max Daily Amount: 25 mg. CONTINUE these medications which have NOT CHANGED Aspirin 81 MG Tabs Dose: 81 mg Refills: 0 Take 81 mg by mouth DAILY. atenolol 25 MG Tabs Commonly known as: TENORMIN Dose: 25 mg Refills: 0 Take 25 mg by mouth DAILY. CHANTIX 0.5 MG Tabs Generic drug: Varenicline Tartrate Dose: 2 Tab Refills: 0 Take 2 Tabs by mouth DAILY. CRESTOR 5 MG Tabs Generic drug: Rosuvastatin Calcium Dose: 5 mg Refills: 0 Take 5 mg by mouth DAILY. MILK OF MAGNESIA PO Refills: 0 Take by mouth NEEDED. NITROSTAT 0.4 MG Subl Generic drug: nitroglycerin Dose: 0.4 mg Refills: [address] Place 0.4 mg under tongue EVERY FIVE MINUTES NEEDED for chest pain. OXYcodone 5 MG Tabs Commonly known as: OXY-IR,OXY-FAST Dose: 5 mg Quantity: 15 Tab Refills: 0 Take 1 Tab by mouth EVERY FOUR HOURS NEEDED (pain). Max Daily Amount: 30 mg. mdd6 pt taking differently: 1q4h PLAVIX 75 MG Tabs Generic drug: clopidogrel Dose: 75 mg Refills: 0 Take 75 mg by mouth DAILY. PROTONIX 40 MG Tbec Generic drug: pantoprazole Dose: 40 mg Refills: 0 Take 40 mg by mouth TWICE DAILY. REMERON 15 MG Tabs Generic drug: mirtazapine Dose: 30 mg Refills: 0 Take 30 mg by mouth EVERY BEDTIME. rivaroxaban 10 MG Tabs Commonly known as: XARELTO Dose: 10 mg Quantity: 12 Tab Refills: 0 Take 1 Tab by mouth DAILY. SENOKOT PO Refills: 0 Take by mouth DAILY. SENSIPAR 30 MG Tabs Generic drug: cinacalcet Dose: 30 mg Refills: 0 Take 30 mg by mouth DAILY. SYNTHROID 125 MCG Tabs Generic drug: levothyroxine Dose: 125 mcg Refills: 0 Take 125 mcg by mouth BEFORE BREAKFAST. Oxygen or Positive Pressure Devices: none Patient Instructions: Activity/Restrictions: Activity as tolerated, but no heavy lifting, strenuous exercise or driving until cleared by a physician at your post-operative appointment. Exercise and walk daily. Medications: resume all your home medication including aspirin and plavix. No Metformin for 48 hoursafter procedure. Skin/Wound Care: Keep incision clean and dry. Observe for redness, swelling, or drainage. Can shower 48 hours after procedure with dressing on. Soap, shampoo and conditioner are all ok. Let everything run over then pat dry. Dressing can be removed 1 week after it was put on. Discharge Diet: diet that you were on prior to hospitalization. Please take stool softener while youare on narcotic pain medication since it can cause constipation Special Instructions: -Follow up with Dr. Pineda in Vascular Surgery Clinic in 12/03/2019. Please call the clinic of at [phone] if you have any questions or concerns before your appointment. Provider Signature: Rosa Hoffman MD documented in this encounter Discharge Instructions Rosa Hua MD - 11/26/2019Provider's Instructions Reason for Admission or Diagnosis:Thrombosis of femoro-popliteal bypass graft ( HCC) Activity/Restrictions: Activity as tolerated, but no heavy lifting, strenuous exercise or driving until cleared by a physician at your post-operative appointment. Exercise and walk daily. Medications: resume all your home medication including aspirin and plavix. No Metformin for 48 hoursafter procedure. Skin/Wound Care: Keep incision clean and dry. Observe for redness, swelling, or drainage. Can shower 48 hours after procedure with dressing on. Soap, shampoo and conditioner are all ok. Let everything run over then pat dry. Dressing can be removed 1 week after it was put on. Discharge Diet: diet that you were on prior to hospitalization. Please take stool softener while youare on narcotic pain medication since it can cause constipation Special Instructions: -Follow up with Dr. Pineda in Vascular Surgery Clinic in 2 weeks. Please call the clinic of Dr. Pineda at [phone] if you have any questions or concerns before your appointment. Discharge Provider: Rosa Hoffman MD Attending: Jordy Pineda MD Time: 16:00 Nurse's Instructions Problems to report to your Physician: Excessive pain or discomfort Fever > 100.5 degrees Difficulty breathing Increase or smell in wound drainage Skin/Wound Care: Skin intact on discharge Other preprinted instructions reviewed and given: {PREPRINTED DISCHARGE INSTRUCTIONS:13825} Follow-Up Care: SEE follow up appointment provided Reminded patient that they can VIEW, DOWNLOAD and TRANSMIT their hospital information in e[facility]uth[facility]: yes [email or web address]/sites/default/files/What%20the%20patient%20will% 20see%[email or web address]_0.pdf Smoking: If you or your caregiver smoke, we recommend that you quit. For smoking cessation help, please callthe National Quit Line at . QUESTIONS OR CONCERNS AFTER DISCHARGE Dietitian Home Care Needs *Please Return Patient Satisfaction Survey* documented in this encounter Progress Notes Rosa Hoffman MD - 11/26/2019 7:25 AM EST [facility] [place]. [address] Vascular Surgery Progress Note Date of Service: 11/26/2019 Patient: Rani Lambert B #: [id number] Attending: JORDY PINEDA MD ,MD Subjective: Patient is doing well this morning with no acute complaints pain is well controlled tolerating diet,still on bedrest 30 degrees reverse Trendelenburg position, overnight she was examined by housestaffand found to have a mildly swollen right groin with a saturated dressing that was changed with compression dressing in sterile fashion. Swelling is most likely due to underlying small hematoma no ecchymosis no overlying skin changes Physical: Objective: Blood pressure 97/60, pulse 57, temperature 97.4 F (36.3 C), temperature source Temporal, resp. rate 18, height 5' 4" (1.626 m), weight 123 lb 11.2 oz (56.1 kg), SpO2 100 %, not currently . I/O: Date 11/25/19 0700 - 11/26/19 0659 11/26/19 0700 - 11/27/19 0659 Shift 1404-2899 2259-0848 6794-8659 24 Hour Total 8691-1571 7922-2754 5156-3462 24 Hour Total INTAKE I.V.(mL/kg/hr) 1400(3.12) 1400(1.04) Blood 488 488 Shift Total(mL/kg) 1888(33.65) 1888(33.65) OUTPUT Urine(mL/kg/hr) 500(1.11) 325(0.72) 825(0.61) Blood 500 500 Shift Total(mL/kg) 500(8.91) 825(14.7) 1325(23.61) Weight (kg) 56.11 56.11 56.11 56.11 56.11 56.11 56.11 56.11 General: alert, no distress, cooperative and 30 degrees reverse Trendelenburg Lungs: Nonlabored breathing Abd: Abdomen soft nontender no distention Groin: Mepilex dressing saturated but dry taken down small hematoma noted Medipore dressing placed with coverlet no overlying skin breakdown Ext: DP and PT pulses palpable and biphasic bilaterally Neuro: Alert and sensory function intact Problems: DVT Prophylaxis: Patient on Xarelto GI Prophylaxis: Protonix nutrition: Heart healthy diet Young remains in place for the following reason(s): Perioperative I's and O's Assessment and plan: Ms. Rani Lambert is a 74-y.o. female with a history of hypertension and peripheral vascular disease,history of multiple right lower extremity bypass, open thrombectomy, fasciotomy, and fasciotomy closure, and right femoral artery closure to incision of the right leg PTFE prosthetic bypass open thrombectomy balloon angioplasty is admitted for ongoing history of right leg and foot pain and right toe discoloration is now POD1 right leg open thrombectomy with angiogram and balloon angioplasty due to thrombosis of the femoral popliteal bypass graft - Analgesia PRN -Monitor right groin hematoma -out of bed and walking and to chair -Discontinue Young and void check later -Possible discharge later this afternoon -1 L LR bolus due to decreased oral intake -Restart home medications as appropriate -Bowel regimen -I-S pulmonary toilet deep breathing and cough -Continue regular diet Author: Rosa Hoffman MD Associated attestation - Jordy Pineda MD - 11/26/2019 5:28 PM ESTPatient seen and examined with resident staff. I agree with assessment and plan. Groin soft, vascular intact to foot. Jordy Pineda MD, RVT, FACS Section of Vascular Surgery Eve Cheung MD - 11/25/2019 9:21 PM EST [facility] [place]. [id number] Progress Note Date of Service: 11/25/2019 Date of Admission: 11/25/19 Patient: Rani Lambert B #: [id number] Attending: Jordy Pineda MD Room: [facility] SURGERY POST-OP CHECK Procedure: Right leg open thrombectomy with angiogram and balloon angioplasty Findings: right lower extremity is on splint, patient is on 30 degree reverse trendelenburg positionand bedrest. Right calf is soft, right PT-DP pulses are triphasic on doppler, sensorimotor exam is intact, no pretibial edema. Right groin is mildly swollen, mepilex dressing is saturated. Dressing waschanged in sterile fashion, compression applied. Plan: - Monitor groin for hematoma development. Author: Eve Cheung MD documented in this encounter Plan of Treatment Date Type Specialty Care Team Description 12/03/2019 Office Visit Vascular Surgery Maria Esther Chance CRNP [address] [place] [address] 04/05/2020 Ancillary Procedure Radiology 04/05/2020 Ancillary Procedure Radiology 04/05/2020 Office Visit Vascular Surgery Jordy Pineda MD [address] [place] [address] Name Type Priority Associated Diagnoses Date/Time SP PERIPHERAL ANGIOPLASTY Imaging Routine 11/25/2019 3:28 PM RIGHT SIDE EST SP UNILAT PERIPHERAL Imaging Routine 11/25/2019 3:26 PM ANGIO RIGHT SIDE EST Name Type Priority Associated Diagnoses Order Schedule SP PERIPHERAL Imaging Routine One PRN (for Radiant ANGIOPLASTY RIGHT SIDE use) One PRN (for Radiant use) for 1 Occurrences starting 11/25/2019 SP UNILAT PERIPHERAL Imaging Routine One PRN (for Radiant ANGIO RIGHT SIDE use) One PRN (for Radiant use) for 1 Occurrences starting 11/25/2019 Health Maintenance Due Date Last Done Comments [...] of this encounter Implants Implanted Type Area Boilermaker Welder Device Shelf Model / Identifier Expiration Serial / Date Lot Cari Biologic Patch .8 X 8cm - [id number] Right: [facility] 03/11/2024 [id number] / Implanted: Qty: 1 on 01/16/2019 by Jordy Pineda MD at [facility] Popliteal / [id number] Description:Popliteal-Tibial Artery Epic Stent [id number] - [id number] Right: Iliac [employer] 2018 [id number] / Implanted: Qty: 1 on 07/03/2019 by Jordy Pineda MD at [facility] / [id number] Description:Right External Iliac Artery documented as of this encounter Procedures Procedure Name Priority Date/Time Associated Comments Diagnosis MAGNESIUM LEVEL Routine 11/26/2019 3:11 Results for this AM EST procedure are in the results section. BASIC METABOLIC Routine 11/26/2019 3:11 Results for this PANEL AM EST procedure are in the results section. CBC NO DIFFERENTIAL Routine 11/26/2019 3:11 Results for this AM EST procedure are in the results section. TISSUE EXAM Routine 11/25/2019 4:04 Thrombosis of Results for this PM EST femoro-popliteal procedure are in bypass graft, the results initial encounter section. ([facility]) TYPE AND SCREEN STAT 11/25/2019 1:09 Results for this PM EST procedure are in the results section. BASIC METABOLIC STAT 11/25/2019 1:09 Results for this PANEL PM EST procedure are in the results section. CBC NO DIFFERENTIAL STAT 11/25/2019 1:09 Results for this PM EST procedure are in the results section. ARTERIOGRAM Planned Trip to 11/25/2019 12:48 Thrombosis of PERIPHERAL ROOM 14 OR PM EST femoro-popliteal bypass graft, initial encounter ([facility]) IMAGING ORDER/RESULT 11/25/2019 12:00 PM EST documented in this encounter Results BASIC METABOLIC PANEL (11/26/2019 3:11 AM EST) Glucose 195 (H) 70 - 99 mg/dl [facility] BUN 27 (H) 7 - 17 mg/dl [facility] Creatinine 1.4 (H) 0.7 - 1.2 mg/dl [facility] Sodium 137 134 - 145 mmol/L [facility] Potassium 4.9 3.5 - 5.1 mmol/L [facility] Chloride 110 (H) 98 - 107 mmol/L [facility] CO2 20 (L) 22 - 30 mmol/L [facility] Calcium 8.5 8.3 - 10.1 mg/dl [facility] eGFR 37 See Interpretation [facility] Comment: Below ml/min/1.73ml GROUP Estimated GFR Interpretation: Sq LABORATORY Above 60ml/min/1.73m2 = Normal Renal Function 30-59 ml/min/1.73m2 = Stage 3 Chronic Kidney Disease 15-29 ml/min/1.73m2 = Stage 4 Chronic Kidney Disease Less than 15 ml/min/1.73m2 = Stage 5 Chronic Kidney Disease The GFR value is calculated using the Modification of Diet in Renal Disease ( MDRD) Study Equation which can be found at: https://www.kidney.org/content/jdcp-hrpay-rshpfhxb BUN/Creatinine 19 6 - 22 RATIO [facility] Ratio [facility] Anion Gap 7 3 - 11 mmol/L [facility] Specimen Blood - Blood specimen (specimen) Performing Organization Address [facility] Phone Number [facility] [address] [facility] [place] [address] MAGNESIUM LEVEL (11/26/2019 3:11 AM EST) Magnesium 1.9 1.6 - 2.3 MG/DL [facility] Specimen Blood - Blood specimen (specimen) Performing Organization Address [facility] Phone Number [facility] [address] [place] [address] CBC NO DIFFERENTIAL (11/26/2019 3:11 AM EST) WBC Count 7.84Comment: 3.98 - 10.04 [facility] Methodology was K/uL GROUP LAB[facility]ORY changed 10/17/2018. Please note updated reference range and units. RBC Count 2.98 (L) 3.93 - 5.22 [facility] M/UL [facility] Hemoglobin 9.7 (L) 11.2 - 15.7 [facility] g/dL [facility] Hematocrit 29.8 (L) 34.1 - 44.9 % [facility] MCV 100.0 (H) 79.4 - 94.8 [facility] FL [facility] MCH 32.6 (H) 25.6 - 32.2 [facility] PG [facility] MCHC 32.6 32.2 - 35.5 [facility] g/dL [facility] Platelet Count 150 (L) 182 - 369 [facility] K/uL [facility] MPV 11.8 9.4 - 12.3 FL [facility] RDW 14.4 11.7 - 14.4 % [facility] Specimen Blood - Blood specimen (specimen) Performing Organization Address [facility] Phone Number [facility] [address] [place] [address] TISSUE EXAM (11/25/2019 4:04 PM EST) Case Report Surgical Pathology Case: [id number] [facility] Authorizing Provider: Jordy Pineda MD Collected: 11/25/2019 04:04 PM [facility] Ordering Location: [facility] Preprocedure Received: 11/26/2019 08:31 AM Pathologist: Mayank Soria MD Specimen: OTHER (WRITE ON SPECIMEN), Right leg clot Pre-Op Diagnosis T82.868A - [facility] Thrombosis of [email or web address] LABORATORY femoro-popliteal bypass graft, initial encounter (HCC) [ICD-10-CM] Post-Op Diagnosis T82.868A - [facility] Thrombosis of [facility] [[email or web address] LABORATORY femoro-popliteal bypass graft, initial encounter (HCC) [ICD-10-CM] FINAL DIAGNOSIS Blood clot, removed [facility] Electronically signed from right leg [email or web address] LABORATORY by chau Soria. Mayank Esparza MD on 11/27/2019 at 10:48 AM Microscopic Microscopic [facility] Description examination is GROUP LABORATORY performed. Gross Description 1. The specimen is received in formalin labeled, with the patient's name, MRN, and Right leg clot. It consists of multiple pink-red blood clots in an aggregate measurement of 3.5 x 3[address] [facility] sentative sections are submitted in cassette 1A. [facility] Gross description is reviewed before signout by Mayank Soria MD Disclaimer Gross description is performed at the [facility], [address] [place] [address]. [facility] All technical components are performed at the [facility], [address] [place], [place] [address] [facility]. Specimen Tissue - Specimen from unspecified body site (specimen) Performing Organization Address City/[facility]/Zipcode Phone Number [address] [place] [facility] [phone] TYPE AND SCREEN (11/25/2019 1:09 PM EST) ABO/RH Type A POS [facility] Antibody Screen Interp NEG [facility] Specimen Blood Performing Organization Address [facility] Phone Number [facility] [place] [address] BASIC METABOLIC PANEL (11/25/2019 1:09 PM EST) Glucose 88 70 - 99 mg/dl [facility] BUN 18 (H) 7 - 17 mg/dl [facility] Creatinine 1.1 0.7 - 1.2 mg/dl [facility] Sodium 143 134 - 145 mmol/L [facility] Potassium 4.4 3.5 - 5.1 mmol/L [facility] Chloride 115 (H) 98 - 107 mmol/L [facility] CO2 21 (L) 22 - 30 mmol/L [facility] Calcium 9.8 8.3 - 10.1 mg/dl [facility] eGFR 49 See Interpretation [facility] Comment: Below ml/min/1.73ml GROUP Estimated GFR Interpretation: LABORATORY Above 60ml/min/1.73m2 = Normal Renal Function 30-59 ml/min/1.73m2 = Stage 3 Chronic Kidney Disease 15-29 ml/min/1.73m2 = Stage 4 Chronic Kidney Disease Less than 15 ml/min/1.73m2 = Stage 5 Chronic Kidney Disease The GFR value is calculated using the Modification of Diet in Renal Disease ( MDRD) Study Equation which can be found at: https://www.kidney.org/content/gnwu-iaubu-lxdshyzo BUN/Creatinine 16 6 - 22 [facility] Ratio [facility] [email or web address] LABORATORY Anion Gap 7 3 - 11 mmol/L [facility] Specimen Blood - Blood specimen (specimen) Performing Organization Address City/State/Zipcode Phone Number [facility] [address] [place] [address] CBC NO DIFFERENTIAL (11/25/2019 1:09 PM EST) WBC Count 8.10Comment: 3.98 - 10.04 [facility] Methodology was K/uL [facility] changed 10/17/2018. Please note updated reference range and units. RBC Count 3.73 (L) 3.93 - 5.22 [facility] M/UL [facility] Hemoglobin 12.1 11.2 - 15.7 [facility] g/dL [facility] Hematocrit 36.8 34.1 - 44.9 % [facility] MCV 98.7 (H) 79.4 - 94.8 [facility] FL [facility] [email or web address]] LABORATORY MCH 32.4 (H) 25.6 - 32.2 [facility] PG [facility] MCHC 32.9 32.2 - 35.5 [facility] g/dL [facility] Platelet Count 193 182 - 369 [facility] K/uL [facility] MPV 11.0 9.4 - 12.3 [place] [facility] RDW 14.1 11.7 - 14.4 % [facility] Specimen Blood - Blood specimen (specimen) Performing Organization Address City/State/Zipcode Phone Number [facility] [address] [address] [phone] IMAGING ORDER/RESULT (11/25/2019 12:00 PM EST) Narrative Performed At documented in this encounter Visit Diagnoses Diagnosis Thrombosis of femoro-popliteal bypass graft, initial encounter (HCC) documented in this encounter Administered Medications Medication Order MAR Action Action Date Dose Rate Site acetaminophen (TYLENOL) tablet Given 11/26/2019 11:34 AM EST 1,000 mg 1,000 mg 1,000 mg, Oral, Q8 HRS, First dose on Sun11/25/19 at 1800, Until Discontinued Given 11/26/2019 5:57 AM EST 1,000 mg Given 11/25/2019 7:47 PM EST 1,000 mg albuterol-ipratropium (DUO-NEB) nebulizer unit Given 11/25/2019 4:57 PM EST 3 mg dose (RT ADMIN) 0.5-2.5 (3) MG/3ML 3 mg, Inhalation-SVN, X1, 1 dose, First dose on Sun11/25/19 at 1650, 4 Recovery, Ordering this RT Admin Medication will automatically order the patient to be placed on the Respiratory Therapy Patient Driven Protocol RT may increase the frequency of administration to q2h, as needed, if symtoms are not controlled at current ordered frequency. If administer three times consecutively without improvement, call provider., amLodipine (NORVASC) tablet 2.5 mg Given 11/26/2019 7:54 AM EST 2.5 mg 2.5 mg, Oral, DAILY, First dose on Sun11/25/19 at 1700, Until Discontinued, Hold for SBP< 100, aspirin (ECOTRIN) enteric coated tablet 81 mg Given 11/26/2019 7:53 AM EST 81 mg 81 mg, Oral, DAILY, First dose on Sun11/25/19 at 1700, Until Discontinued atenolol (TENORMIN) tablet 25 mg Given 11/26/2019 7:54 AM EST 25 mg 25 mg, Oral, DAILY, First dose on Sun11/25/19 at 1700, Until Discontinued, Hold for HR< 60 or SBP< 100, atorvastatin (LIPITOR) tablet 10 mg Given 11/26/2019 7:56 AM EST 10 mg 10 mg, Oral, DAILY, First dose on Sun11/25/19 at 1700, Until Discontinued cinacalcet (SENSIPAR) tablet 30 mg Given 11/26/2019 7:54 AM EST 30 mg 30 mg, Oral, DAILY, First dose on Sun11/25/19 at 1700, Until Discontinued, Do not crush, chew or split tablets; Administer with food, clopidogrel (PLAVIX) tablet 75 mg Given 11/26/2019 7:54 AM EST 75 mg 75 mg, Oral, DAILY, First dose on Sun11/25/19 at 1700, Until Discontinued lactated ringers IV 1,000 mL New Bag 11/26/2019 7:55 AM EST 1,000 mL 1,000 mL, Intravenous, BOLUS, 1 dose, Sun11/26/19 at 0620 levothyroxine (SYNTHROID) tablet 125 mcg Given 11/26/2019 5:57 AM EST 125 mcg 125 mcg, Oral, PRE BREAKFAST, First dose on Sun11/26/19 at 0600, Until Discontinued mirtazapine (REMERON) tablet 30 mg Given 11/25/2019 7:50 PM EST 30 mg 30 mg, Oral, QHS, First dose on Sun11/25/19 at 2000, Until Discontinued morphine (PF) syringe 2 mg 2 mg, Intravenous Push, Q4 HRS PRN, Starting Sun11/25/19 at 1652, Until 10/03 at 1904, Severe Pain (pain scale 7-10)IV 2nd line - if immediate effect required or cannot tolerate PO & no still has severe pain 1 hr after admin of 1st line agent or did not tolerate 1st line agent OXYcodone (OXY-IR,OXY-FAST) immediate release Given 11/26/2019 4:10 PM EST 5 mg tablet 5 mg 5 mg, Oral, Q4 HRS PRN, Starting Sun11/25/19 at 1648, Until Sun11/26/19 at 1904, Moderate Pain (pain scale 4-6) - PO - 1st line - if immediate effect not required and patient can tolerate PO, pain Given 11/26/2019 11:33 AM EST 5 mg Given 11/26/2019 7:53 AM EST 5 mg pantoprazole (PROTONIX) enteric coated tablet Given 11/26/2019 7:56 AM EST 40 mg 40 mg 40 mg, Oral, BID, First dose on Sun11/25/19 at 2000, Until Discontinued, This medication dosage form should NOT be crushed. Please call the inpatient Pharmacy for more information. [facility] ext. [phone] [place] ext. [phone] [facility] ext. [phone] , Given 11/25/2019 7:50 PM EST 40 mg pregabalin (LYRICA) capsule 50 mg Given 11/26/2019 7:56 AM EST 50 mg 50 mg, Oral, BID, 14 doses, First dose on Sun11/25/19 at 2000, Last dose on Sun12/02/19 at 0900 Given 11/25/2019 7:50 PM EST 50 mg rivaroxaban (XARELTO) tablet 10 mg Given 11/26/2019 7:56 AM EST 10 mg 10 mg, Oral, DAILY, 7 doses, First dose on Sun11/25/19 at 1700, Last dose on Sun12/01/19 at 0900, Please start on 11/25/2019, When used for DVT/PE prophylaxis after total joint replacement, start medication 6-10 hours after surgery. For nasogastric/gastric feeding tube administration, the tablets (all strengths) may be crushed and mixed in 50 mL of water; administer the suspension within 4 hours of preparation and follow administration of the 15 mg and 20 mg tablets immediately with enteral feeding (10 mg tablets may be administered without regards to food). Avoid administration distal to the stomach due to a decrease in efficacy (i.e. may NOT be administered by J-Tube)., Given 11/25/2019 7:47 PM EST 10 mg documented in this encounter Insurance Payer Benefit Plan / Subscriber ID Effective Dates Phone Address Type Group MEDICARE MEDICARE PART A [id number] 2011-Present Medicare & B [place] [id number] 2017-Present [place] documented as of this encounter Advance [...]
[2019-12-21 03:58] LABS: ABS Basophils 0.1 10^3/ul (0-0.2); ABS Eosinophils 0.3 10^3/ul (0-0.6); ABS Monocytes 0.9 10^3/ul (0-0.8); ABS Neutrophils 3.6 10^3/ul (1.5-7.7); Eosinophil % 4.1 %; Hematocrit 27 % (35-47); Hemoglobin 9.2 g/dL (12.0-16.0); Lymphocyte % 29.7 %; Mean Corpuscular HGB Conc 34 g/dL (31-36); Mean Corpuscular Hemoglobin 34 pg (27-31); Mean Corpuscular Volume 101 fL (80-97); Mean Platelet Volume 9.1 fL (7.4-10.4); Platelet Count 153 10^3/uL (150-450); Red Blood Count 2.71 10^6 /uL (3.70-4.87); Red Cell Distribution Width 15 % (10-15); White Blood Count 6.9 10^3/uL (3.5-10.8)
[2019-12-21 04:03] LABS: INR 1.47 (0.82-1.09)
[2019-12-21 04:14] LABS: Albumin 3.7 g/dL (3.2-5.2); Albumin/Globulin Ratio 1.7 (1-3); BUN/Creatinine Ratio 22.9 (8-20); Calcium 8.9 mg/dL (8.6-10.3); EGFR African American 44.7 (>60); Globulin 2.2 g/dL (2-4); Total Bilirubin 0.3 mg/dL (0.2-1.0); Total Protein 5.9 g/dL (6.4-8.9)
[2019-12-21 04:16] LABS: Troponin I 0.01 ng/mL (<0.03)
[2019-12-21 05:43] VITALS: BP 163/55
== END 2019-12-21 05:42 | disposition home or self-care (01) ==
LOC: ED 01:57
DX: S80.12XA Contusion of left lower leg, initial encounter (principal); S80.11XA Contusion of right lower leg, initial encounter; R07.9 Chest pain, unspecified; I25.2 Old myocardial infarction; Z87.891 Personal history of nicotine dependence; Z79.01 Long term (current) use of anticoagulants; I25.10 Atherosclerotic heart disease of native coronary artery without angina pectoris; E78.00 Pure hypercholesterolemia, unspecified; I10 Essential (primary) hypertension; F41.9 Anxiety disorder, unspecified; F32.9 Major depressive disorder, single episode, unspecified; Z79.899 Other long term (current) drug therapy; X58.XXXA Exposure to other specified factors, initial encounter; Y92.9 Unspecified place or not applicable; Z79.890 Hormone replacement therapy; Z79.82 Long term (current) use of aspirin
CPT/HCPCS: 36415; 80053; 84484; 85025; 85610; 93005; 99283

== ENCOUNTER 2022-03-14 21:57 | Observation (INO) ==
[2022-03-14] MEDS ORDERED: NS 0.9% 1000 ml BAG 1,000 ML IV ONE (22:22)
[2022-03-14] MEDS ORDERED: Ziprasidone IM 20 mg VIAL 1 ml VIAL IM ONE (22:24)
[2022-03-14] MEDS ORDERED: LORazepam 2 mg VIAL 1 ml IM ONE ×2 (22:24→22:42)
[2022-03-14] MEDS ORDERED: Lorazepam PYXIS KEY PRN ×2 (22:24→22:42)
[2022-03-14 23:07] LABS: ABS Eosinophils 0.1 10^3/ul (0-0.6); ABS Lymphocytes 2.1 10^3/ul (1.0-4.8); ABS Monocytes 0.7 10^3/ul (0-0.8); ABS Neutrophils 6.1 10^3/ul (1.5-7.7); Eosinophil % 1.5 %; Hematocrit 30 % (35-47); Hemoglobin 9.9 g/dL (12.0-16.0); Lymphocyte % 22.7 %; Mean Corpuscular HGB Conc 33 g/dL (31-36); Mean Corpuscular Hemoglobin 31 pg (27-31); Mean Corpuscular Volume 95 fL (80-97); Mean Platelet Volume 8.5 fL (7.4-10.4); Platelet Count 236 10^3/uL (150-450); Red Blood Count 3.18 10^6 /uL (3.70-4.87); Red Cell Distribution Width 16 % (10-15)
[2022-03-15 00:07] LABS: ALT 11 U/L (7-52); Acetaminophen < 15 mcg/mL; Albumin 4.1 g/dL (3.2-5.2); Albumin/Globulin Ratio 1.7 (1-3); Alcohol, S < 13 mg/dL (<13); Alkaline Phosphatase 112 U/L (35-149); Blood Urea Nitrogen 22 mg/dL (6-24); CO2 Carbon Dioxide 20 mmol/L (22-32); Calcium 9.7 mg/dL (8.6-10.3); Chloride 102 mmol/L (101-111); Creatine Kinase 161 U/L (10-223); Globulin 2.4 g/dL (2-4); Glucose 138 mg/dL (70-100); Salicylate < 2.50 mg/dL (<30); Sodium 133 mmol/L (135-145); Total Protein 6.5 g/dL (6.4-8.9); eGFR CKD-EPI 35.8 (>60)
[2022-03-15 00:09] LABS: Anion Gap 11 mmol/L (2-11)
[2022-03-15] MEDS ORDERED: LORazepam 2 mg VIAL 1 ml IM ONE (00:10)
[2022-03-15] MEDS ORDERED: Lorazepam PYXIS KEY PRN (00:10)
[2022-03-15 00:21] LABS: TSH Ultra Thyroid Stim Horm 11.97 mcIU/mL (0.34-5.60)
[2022-03-15 01:09] LABS: Urine Appearance Cloudy; Urine Bilirubin Negative (Negative); Urine Blood 1+ (Negative); Urine Color Straw; Urine Glucose Negative (Negative); Urine Ketones Negative (Negative); Urine Nitrite Negative (Negative); Urine Protein Negative (Negative); Urine Specific Gravity 1.004 (1.002-1.030); Urine Urobilinogen Negative (Negative)
[2022-03-15 01:15] LABS: Potassium Redraw 3.6 mmol/L (3.5-5.0)
[2022-03-15 01:17] LABS: Urine Benzodiazepine Screen None Detected (None Detect); Urine Cannabinoids Screen None Detected (None Detect); Urine Opiates Screen None Detected (None Detect)
[2022-03-15 01:50] LABS: Urine Bacteria Absent (Absent); Urine Red Blood Cell Trace(0-2/hpf) (Absent); Urine Squamous Epithelial Cell Present (Absent); Urine White Blood Cell Trace(0-5/hpf) (Absent)
[2022-03-15] MEDS ORDERED: Ondansetron 4 mg VIAL 2 MG/ML 2 ml VIAL IV PRN (02:30)
[2022-03-15] MEDS: hydrALAZINE 20 mg/ml 1 ML Vial IV IV SLOW PU PRN ×3 (03:15→19:24)
[2022-03-15] MEDS ORDERED: Labetalol IV 5 MG/ML 20 ml VIAL IV PUSH ONE (04:59)
[2022-03-15] MEDS ORDERED: Enoxaparin 30 MG/0.3 ML SYR SUBCUT SCH ×2 (05:15→06:00)
[2022-03-15] MEDS ORDERED: Dextrose 50% Syringe 50 ml 25 GM/50 ML SYRINGE IV PUSH PRN (08:20)
[2022-03-15] MEDS: NS 0.9% 1000 ml BAG 1,000 ML IV ONE ×2 (09:15→17:59)
[2022-03-15 12:52] LABS: ABS Basophils 0.1 10^3/ul (0-0.2); ABS Eosinophils 0.1 10^3/ul (0-0.6); ABS Lymphocytes 1.3 10^3/ul (1.0-4.8); ABS Monocytes 0.8 10^3/ul (0-0.8); ABS Neutrophils 7.7 10^3/ul (1.5-7.7); Eosinophil % 0.6 %; Hematocrit 33 % (35-47); Hemoglobin 10.7 g/dL (12.0-16.0); Mean Corpuscular HGB Conc 33 g/dL (31-36); Mean Corpuscular Hemoglobin 31 pg (27-31); Mean Corpuscular Volume 94 fL (80-97); Platelet Count 262 10^3/uL (150-450); Red Blood Count 3.48 10^6 /uL (3.70-4.87); Red Cell Distribution Width 16 % (10-15); White Blood Count 9.9 10^3/uL (3.5-10.8)
[2022-03-15 12:59] LABS: INR 1.19 (0.86-1.15)
[2022-03-15 13:20] LABS: ALT 11 U/L (7-52); Albumin 4.1 g/dL (3.2-5.2); Albumin/Globulin Ratio 1.6 (1-3); Alkaline Phosphatase 126 U/L (35-149); Blood Urea Nitrogen 18 mg/dL (6-24); C Reactive Protein 6.82 mg/L (<8.01); CO2 Carbon Dioxide 21 mmol/L (22-32); Calcium 9.7 mg/dL (8.6-10.3); Chloride 110 mmol/L (101-111); Globulin 2.6 g/dL (2-4); Glucose 108 mg/dL (70-100); Sodium 139 mmol/L (135-145); Total Iron Binding Capacity 538 mcg/dL (250-450); Total Protein 6.7 g/dL (6.4-8.9); Transferrin 384 mg/dL (203-362); eGFR CKD-EPI 54.8 (>60)
[2022-03-15 13:22] LABS: Anion Gap 8 mmol/L (2-11)
[2022-03-15 13:42] LABS: Folate > 20.00 ng/mL (5.90-24.80)
[2022-03-15 13:43] LABS: Vitamin B12 736 pg/mL (180-914)
[2022-03-15 20:45] LABS: Potassium Redraw 4.2 mmol/L (3.5-5.0)
[2022-03-15] MEDS ORDERED: Enoxaparin 60 MG/0.6 ML SYR SUBCUT SCH (21:00)
[2022-03-16 06:52] LABS: Calcium 9.6 mg/dL (8.6-10.3); Magnesium 2.1 mg/dL (1.9-2.7); Potassium 4.2 mmol/L (3.5-5.0); eGFR CKD-EPI 46.3 (>60)
[2022-03-16 06:53] LABS: Hematocrit 32 % (35-47); Hemoglobin 10.7 g/dL (12.0-16.0); Mean Corpuscular HGB Conc 33 g/dL (31-36); Mean Corpuscular Hemoglobin 32 pg (27-31); Mean Corpuscular Volume 95 fL (80-97); Mean Platelet Volume 8.5 fL (7.4-10.4); Platelet Count 234 10^3/uL (150-450); Red Cell Distribution Width 16 % (10-15); White Blood Count 6.4 10^3/uL (3.5-10.8)
[2022-03-16] MEDS ORDERED: Polyethylene Glycol 3350 17 GM PACKET PO PRN (09:09)
[2022-03-16] MEDS ORDERED: Senna TAB 8.6 mg TAB PO PRN (09:09)
[2022-03-16] MEDS ORDERED: Magnesium Hydroxide LIQ 30 ML UDC PO PRN (09:09)
[2022-03-16] MEDS: Magnesium Hydroxide LIQ 30 ML UDC PO SCH ×2 (10:24→20:55)
[2022-03-17 07:08] LABS: Hematocrit 32 % (35-47); Hemoglobin 10.4 g/dL (12.0-16.0); Mean Corpuscular HGB Conc 33 g/dL (31-36); Mean Corpuscular Hemoglobin 32 pg (27-31); Mean Corpuscular Volume 96 fL (80-97); Mean Platelet Volume 8.6 fL (7.4-10.4); Platelet Count 215 10^3/uL (150-450); Red Blood Count 3.29 10^6 /uL (3.70-4.87); Red Cell Distribution Width 16 % (10-15); White Blood Count 6.5 10^3/uL (3.5-10.8)
[2022-03-17 07:21] LABS: Calcium 9.8 mg/dL (8.6-10.3); Magnesium 2.1 mg/dL (1.9-2.7); Potassium 3.9 mmol/L (3.5-5.0); eGFR CKD-EPI 44.1 (>60)
[2022-03-17] MEDS: Magnesium Hydroxide LIQ 30 ML UDC PO SCH (07:35)
[2022-03-17 11:55] VITALS: BP 179/67
[2022-03-22 10:49] LABS: Noroxycodone Conf, Urine 2184 ng/mL (Cutoff: 25); Noroxymorphone, Urine 464 ng/mL (Cutoff: 25); Oxycodone Conf, Urine 1402 ng/mL (Cutoff: 25); Oxycodone Interpretation, U Positive.; Oxymorphone, Urine 3976 ng/mL (Cutoff: 25)
[2022-03-23 09:25] LABS: Fentanyl Interp Positive.; Fentanyl Level 1.8 ng/mL; Norfentanyl Level 18.9 ng/mL
== END 2022-03-17 15:35 | disposition home or self-care (01) ==
LOC: EDHOLD 21:57 → ED 21:57 → SUATTDRO 03-15 02:30 → EDHOLD 03-15 15:58 → MEDTELE 03-15 17:18
PROVIDERS: ADMIT Hospitalist; ATTEND Internal Medicine

== ENCOUNTER 2022-07-26 22:22 | Observation (INO) ==
[2022-07-26 23:01] LABS: ABS Basophils 0.1 10^3/ul (0-0.2); ABS Eosinophils 0.2 10^3/ul (0-0.6); ABS Lymphocytes 3.2 10^3/ul (1.0-4.8); ABS Neutrophils 6.4 10^3/ul (1.5-7.7); Eosinophil % 2.1 %; Hematocrit 35 % (35-47); Hemoglobin 11.4 g/dL (12.0-16.0); Lymphocyte % 28.9 %; Mean Corpuscular HGB Conc 33 g/dL (31-36); Mean Corpuscular Hemoglobin 31 pg (27-31); Mean Corpuscular Volume 95 fL (80-97); Mean Platelet Volume 8.6 fL (7.4-10.4); Platelet Count 175 10^3/uL (150-450); Red Blood Count 3.66 10^6 /uL (3.70-4.87); Red Cell Distribution Width 19 % (10-15)
[2022-07-26 23:35] LABS: Albumin/Globulin Ratio 1.7 (1-3); Calcium 8.9 mg/dL (8.6-10.3); Globulin 2.3 g/dL (2-4); Magnesium 3.8 mg/dL (1.9-2.7); Total Bilirubin 0.3 mg/dL (0.2-1.0); Total Protein 6.3 g/dL (6.4-8.9); eGFR CKD-EPI 17.4 (>60)
[2022-07-27] MEDS ORDERED: Lactated Ringers 1000 ml BAG 1,000 ML IV ONE ×2 (00:10→00:11)
[2022-07-27] MEDS ORDERED: Dextrose 50% Syringe 50 ml 25 GM/50 ML SYRINGE IV PUSH ONE ×2 (00:12)
[2022-07-27] MEDS ORDERED: CALCIUM GLUCONATE 1GM/50ML NS 1 GM/50 ML BAG IV ONE (00:12)
[2022-07-27] MEDS ORDERED: SODIUM ZIRCONIUM CYCLOSILICATE 10 GM PACKET PO ONE (00:12)
[2022-07-27] MEDS ORDERED: Sodium Bicarbonate 8.4% SYR 50 ml SYRINGE IV ONE (00:12)
[2022-07-27 01:47] LABS: Osmolality Serum 306 mOsm/kg (275-295)
[2022-07-27 02:04] LABS: Urine Appearance Clear; Urine Bilirubin Negative (Negative); Urine Blood Negative (Negative); Urine Color Yellow; Urine Glucose Negative (Negative); Urine Ketones Negative (Negative); Urine Nitrite Negative (Negative); Urine Protein Negative (Negative); Urine Urobilinogen Negative (Negative)
[2022-07-27 02:18] LABS: Urine Osmo 281 mOsm/kg (150-1150)
[2022-07-27 02:20] LABS: Urine Creatinine Concentration 63.58 mg/dL
[2022-07-27 02:27] LABS: Urine Benzodiazepine Screen None Detected (None Detect); Urine Buprenorphine Screen None Detected (None Detect); Urine Cannabinoids Screen None Detected (None Detect); Urine Fentanyl Screen None Detected (None Detect); Urine Hydrocodone Screen None Detected (None Detect); Urine Opiates Screen None Detected (None Detect)
[2022-07-27 02:36] LABS: Acetaminophen < 15 mcg/mL; Blood Urea Nitrogen 50 mg/dL (6-24); CO2 Carbon Dioxide 29 mmol/L (22-32); Calcium 9.2 mg/dL (8.6-10.3); Chloride 101 mmol/L (101-111); Salicylate < 2.50 mg/dL (<30); Sodium 139 mmol/L (135-145); eGFR CKD-EPI 20.7 (>60)
[2022-07-27 02:53] LABS: Glucose 33 mg/dL (70-100)
[2022-07-27 02:54] LABS: Anion Gap 9 mmol/L (2-11)
[2022-07-27 03:27] LABS: Potassium Redraw 3.7 mmol/L (3.5-5.0)
[2022-07-27 05:59] LABS: TSH Ultra Thyroid Stim Horm 17.07 mcIU/mL (0.34-5.60)
[2022-07-27] MEDS ORDERED: Lactated Ringers 1000 ml BAG 1,000 ML IV SCH (06:00)
[2022-07-27 06:10] LABS: Hematocrit 32 % (35-47); Hemoglobin 10.4 g/dL (12.0-16.0); Mean Corpuscular HGB Conc 33 g/dL (31-36); Mean Corpuscular Hemoglobin 31 pg (27-31); Mean Corpuscular Volume 94 fL (80-97); Mean Platelet Volume 8.6 fL (7.4-10.4); Platelet Count 144 10^3/uL (150-450); Red Blood Count 3.39 10^6 /uL (3.70-4.87); Red Cell Distribution Width 19 % (10-15); White Blood Count 8.6 10^3/uL (3.5-10.8)
[2022-07-27 06:46] LABS: Calcium 8.4 mg/dL (8.6-10.3); Potassium 4.3 mmol/L (3.5-5.0)
[2022-07-27 06:52] LABS: eGFR CKD-EPI 22.6 (>60)
[2022-07-27 14:03] LABS: Magnesium 3.1 mg/dL (1.9-2.7)
[2022-07-27] MEDS: Senna TAB 8.6 mg TAB PO SCH ×2 (17:55→23:07)
[2022-07-27] MEDS: Polyethylene Glycol 3350 17 GM PACKET PO SCH ×2 (17:56→23:07)
[2022-07-28 06:04] LABS: Hematocrit 34 % (35-47); Mean Corpuscular HGB Conc 32 g/dL (31-36); Mean Corpuscular Hemoglobin 30 pg (27-31); Mean Corpuscular Volume 95 fL (80-97); Mean Platelet Volume 8.8 fL (7.4-10.4); Platelet Count 157 10^3/uL (150-450); Red Blood Count 3.61 10^6 /uL (3.70-4.87); Red Cell Distribution Width 19 % (10-15)
[2022-07-28 06:23] LABS: Calcium 8.3 mg/dL (8.6-10.3); Magnesium 2.3 mg/dL (1.9-2.7); Potassium 4.3 mmol/L (3.5-5.0); eGFR CKD-EPI 35.8 (>60)
[2022-07-28] MEDS: Polyethylene Glycol 3350 17 GM PACKET PO SCH (07:47)
[2022-07-28 11:06] VITALS: BP 137/76
== END 2022-07-28 13:45 | disposition home or self-care (01) ==
LOC: ED 22:22 → EDHOLD 22:22 → SUATTDRO 07-27 04:04 → MED 07-27 21:51
PROVIDERS: ADMIT Internal Medicine; ATTEND Internal Medicine

== ENCOUNTER 2024-10-06 22:53 | Observation (INO) ==
[2024-10-06] MEDS: Albuterol/Ipratropium NEB.SOL (2.5/0.5 MG) 3 ML NEB.SOLN INH ONE (23:27)
[2024-10-06] MEDS: Ondansetron 4 mg VIAL 2 MG/ML 2 ml VIAL IV ONE (23:29)
[2024-10-06 23:35] LABS: INR 1.38 (0.85-1.14)
[2024-10-06 23:42] LABS: ABS Lymphocytes 0.3 10^3/uL (1.0-4.8); ABS Monocytes 0.3 10^3/uL (0.0-0.9); ABS Neutrophils 9.2 10^3/uL (1.5-7.6); Eosinophil % 0.5 %; Hematocrit 39.1 % (35-45); Hemoglobin 13.1 g/dL (11.5-14.3); Lymphocyte % 3.4 %; Mean Corpuscular Hgb Conc 33.6 g/dL (31-36); Mean Corpuscular Volume 98.3 fL (80-97); Mean Platelet Volume 8.6 fL (7.5-11.2); Platelet Count 171 10^3/uL (150-450); Red Blood Count 3.97 10^6/uL (3.63-4.92); Red Cell Distribution Width 13.9 % (12-17); White Blood Count 9.9 10^3/uL (3.8-11.8)
[2024-10-06 23:48] LABS: High Sens Troponin Baseline 7 pg/mL (<15)
[2024-10-07] MEDS: methylPREDNISolone SOD SUCC 125 mg 2 ML VIAL IV ONE (00:21)
[2024-10-07 00:27] LABS: ALT 21 U/L (7-52); Albumin 3.8 g/dL (3.5-5.7); Albumin/Globulin Ratio 1.5 (1-3); Alkaline Phosphatase 74 U/L (35-149); Anion Gap 12 mmol/L (2-16); Blood Urea Nitrogen 35 mg/dL (6-24); C Reactive Protein 9.44 mg/L (<8.01); CO2 Carbon Dioxide 22 mmol/L (22-32); Calcium 8.5 mg/dL (8.6-10.3); Chloride 105 mmol/L (101-111); Globulin 2.5 g/dL (2-4); Glucose 151 mg/dL (70-100); Lipase < 10 U/L (11.0-82.0); Sodium 139 mmol/L (135-145); Total Bilirubin 0.4 mg/dL (0.2-1.0); Total Protein 6.3 g/dL (6.4-8.9)
[2024-10-07 00:55] LABS: High Sensitivity Troponin 1 Hr 8 pg/mL (<15)
[2024-10-07 02:03] LABS: Potassium Redraw 4.3 mmol/L (3.5-5.0)
[2024-10-07] MEDS: Albuterol/Ipratropium NEB.SOL (2.5/0.5 MG) 3 ML NEB.SOLN INH ONE (02:18)
[2024-10-07] MEDS: Iodixanol 320 (CONTRAST) 100 ML SDV IV ONE (02:24)
[2024-10-07 02:33] LABS: Urine Appearance Clear; Urine Bilirubin Negative (Negative); Urine Blood Negative (Negative); Urine Color Light-Yellow; Urine Glucose Negative (Negative); Urine Ketones Negative (Negative); Urine Nitrite Negative (Negative); Urine Protein 1+ (>=30 mg/dL) (Negative); Urine Specific Gravity 1.017 (1.002-1.030); Urine Urobilinogen Negative (Negative)
[2024-10-07] MEDS: cefTRIAXone 1 gm/50 mL D5W 1 GM/50 ML BAG IV ONE (02:45)
[2024-10-07 02:54] LABS: Urine Bacteria Absent /HPF (Absent); Urine Red Blood Cell 1+(3-5/hpf) /HPF (0-Trace); Urine White Blood Cell Trace(0-5/hpf) /HPF (0-Trace)
[2024-10-07] MEDS: Albuterol 2.5mg/3 ml (0.083%) NEB.SOLN INH ONE (03:52)
[2024-10-07] MEDS: Azithromycin 500 mg/250 ml NS 500 MG/250 ML BAG IVPB ONE (03:53)
[2024-10-07] MEDS: Lactated Ringers 1000 ml BAG 1,000 ML IV ONE (04:00)
[2024-10-07] MEDS ORDERED: Senna TAB 8.6 mg TAB PO PRN (05:48)
[2024-10-07] MEDS ORDERED: Albuterol/Ipratropium NEB.SOL (2.5/0.5 MG) 3 ML NEB.SOLN INH PRN (05:50)
[2024-10-07] MEDS ORDERED: Albuterol HFA INHALER 8 gm MDI INH PRN (05:51)
[2024-10-07] MEDS ORDERED: Polyethylene Glycol 3350 17 GM PACKET PO PRN (06:16)
[2024-10-07] MEDS ORDERED: Magnesium Hydroxide LIQ 30 ML UDC PO PRN (06:16)
[2024-10-07 06:59] LABS: ABS Lymphocytes 0.3 10^3/uL (1.0-4.8); ABS Monocytes 0.1 10^3/uL (0.0-0.9); ABS Neutrophils 9.9 10^3/uL (1.5-7.6); Hematocrit 35.8 % (35-45); Lymphocyte % 2.7 %; Mean Corpuscular Hemoglobin 33.3 pg (27-33); Mean Corpuscular Hgb Conc 33.6 g/dL (31-36); Mean Corpuscular Volume 98.9 fL (80-97); Mean Platelet Volume 9.2 fL (7.5-11.2); Platelet Count 167 10^3/uL (150-450); Red Blood Count 3.62 10^6/uL (3.63-4.92); Red Cell Distribution Width 14.3 % (12-17); White Blood Count 10.3 10^3/uL (3.8-11.8)
[2024-10-07 07:17] LABS: Calcium 7.7 mg/dL (8.6-10.3); Creatinine, Serum 1.51 mg/dL (0.51-0.95); Potassium 3.9 mmol/L (3.5-5.0); eGFR CKD-EPI 35.4 (>60)
[2024-10-07] MEDS: Magnesium Hydroxide LIQ 30 ML UDC PO SCH (11:20)
[2024-10-07] MEDS: cefTRIAXone 1 gm/50 mL D5W 1 GM/50 ML BAG IV SCH (20:34)
[2024-10-08 06:32] LABS: ABS Lymphocytes 1.1 10^3/uL (1.0-4.8); ABS Monocytes 1.1 10^3/uL (0.0-0.9); ABS Neutrophils 9.6 10^3/uL (1.5-7.6); Hematocrit 33.6 % (35-45); Hemoglobin 11.3 g/dL (11.5-14.3); Lymphocyte % 9.3 %; Mean Corpuscular Hemoglobin 32.5 pg (27-33); Mean Corpuscular Hgb Conc 33.6 g/dL (31-36); Mean Corpuscular Volume 96.7 fL (80-97); Mean Platelet Volume 8.5 fL (7.5-11.2); Platelet Count 157 10^3/uL (150-450); Red Blood Count 3.47 10^6/uL (3.63-4.92); White Blood Count 11.8 10^3/uL (3.8-11.8)
[2024-10-08 06:57] LABS: Calcium 8.4 mg/dL (8.6-10.3); Creatinine, Serum 1.28 mg/dL (0.51-0.95); Magnesium 1.7 mg/dL (1.9-2.7); eGFR CKD-EPI 43.1 (>60)
[2024-10-08] MEDS: Magnesium Sulfate 2 gm BAG 2 GM/50 ML BAG IVPB ONE (09:43)
[2024-10-08 14:05] VITALS: BP 167/93
== END 2024-10-08 16:30 | disposition home or self-care (01) ==
LOC: EDHOLD 22:53 → ED 22:53 → SUATTDRO 10-07 04:16 → MED 10-07 07:44
PROVIDERS: ADMIT Hospitalist; ATTEND Student in an Organized Health Care Education/Training Program